=== PATIENT | male | born 1940 | race Caucasian/White ===

== ENCOUNTER 2021-04-13 08:51 | Outpatient (CLI) | payer MEDICARE, SELFPAY ==
--- NOTE | ~2021-04-13 | XR_ITS ---
XR cervical spine min 6V DATE: 04/13/2021 09:15 INDICATION: Neck pain. No injury. TECHNIQUE: AP, open-mouth, swimmer's, lateral and flexion and extension lateral views COMPARISON: None FINDINGS: There is minimal anterolisthesis at C4-5 which is stable in flexion, extension and neutral positions. C1 and C2 are normally aligned and the odontoid process is intact. No fracture or dislocation or lock ed facet or prevertebral soft tissue swelling. There is mild anterior spurring but relative preservation of interspaces at C4-5 and C5-6. There is degenerative change at the apophyseal joints throughout the cervical spine. IMPRESSION: Minimal stable anterolisthesis at C4-5 Mild anterior spurring at C4-5 and C5-6 Degenerative change at the apophyseal joints throughout the cervical spine Reviewed, dictated and finalized at location B.
== END 2021-04-13 08:52 | disposition home or self-care (01) ==
PROVIDERS: PCP Family Medicine; Visit Provider Physician Assistant
DX: M50.30 Other cervical disc degeneration, unspecified cervical region (principal)
CPT/HCPCS: 72052

== ENCOUNTER 2022-02-22 07:30 | Outpatient (RCR) | payer MEDICARE, OTHER, SELFPAY ==
--- NOTE | 2022-02-08 09:47 | OTOPEVAL ---
OCCUPATIONAL THERAPY INITIAL EVALUATION REPORT 02/08/22 Laci is an 81 year-old, right handed male who is referred to outpatient OT with dx of trigger finger. He reports deficits with being able to make a fist, particularly with the left middle finger. 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 We plan to follow up in 2 weeks for a re-assessment of his progress. Thank you for referring Laci Mas to [facility].? The patient is scheduled to be seen for therapy? 0-1x/week for 2 weeks. Please review, sign, date and return this plan of care QASIM. I agree with and certify that the following plan of care is medically necessary. Referring Physician Date Referring Provider: Devaughn Whyte MD Evaluation Information Problem Diagnosis Trigger finger, unspecified finger Onset a couple months Additional Evaluation Detail Left hand x-ray positive for IP joint degenerative changes. He received an injection to the left 3rd and 4th A1 eva on 01/05/22. Subjective Information Patient reports biggest Query Text:As Reported By Patient/ challenge with being able to Family fully close the left middle finger when trying to make a fist. He states the pain is localized to the PIP joint. He states this does not affect his ability to hold a golf club. Prior Level of Function Activity Level (Last 3 Months) Occupation Retired Hand Dominance Right Pain Assessment Timing of Pain Assessment Timing of Pain Assessment Assessment Pain Scale Pain Scale Used Numeric (1 - 10) Self Report Pain Assessment Left Finger, Middle Reported Pain Level 0 Lowest Pain Intensity 0 Greatest Pain Intensity 4 Other Pain Aggravating Factors Gripping and ROM Pain Score Pain Score 0: Self Report Upper Extremity Range of Motion Finger Range of Motion Left Middle Finger MCP Joint Flexion - Active 60 Middle Finger PIP Joint Flexion - Active 75 Middle Finger DIP Joint Flexion - Active 75 Finger Range of Motion Comments Index, ring, and pinky active flexion is WFL. Passive flexion of the middle finger is WFL. Reports discomfort in the PIP joint with passive flexion. Hand Sleeve Tailor/Pinch Strength Assessment Hand Left Sleeve Tailor Strength (lbs) 47 Right Sleeve Tailor Strength (lbs) 61 Upper Extremity Exercise Finger/Thumb Exercise Left Other Finger/Thumb Exercises
--- NOTE | 2022-02-22 08:05 | OTOPEVAL ---
OCCUPATIONAL THERAPY RE-EVALUATION REPORT AND DISCHARGE NOTE 02/22/22 Laci presents today after completing his HEP for 2 weeks independently. At this time, the ROM of the left middle finger has returned to normal limits. He is currently independent with all materials and ready for discharge. Thank you for referring Laci Mas to [facility]. Please review, sign, date and return this D/C Note QASIM. I agree with and certify that the following plan of care is medically necessary. Referring Physician Date Referring Provider: Devaughn Whyte MD *OT Outpatient Re-Evaluation Diagnosis Trigger finger Onset a couple months Additional Evaluation Detail Left hand x-ray positive for IP joint degenerative changes. He received an injection to the left 3rd and 4th A1 eva on 01/05/22. Subjective Information Patient reports biggest Query Text:As Reported By Patient/ challenge with being able to Family fully close the left middle finger when trying to make a fist. He states the pain is localized to the PIP joint. He has been working on ROM and gentle conservation agent strengthening HEP x2 weeks. Pain Assessment Timing of Pain Assessment Timing of Pain Assessment Re-assessment Pain Scale Pain Scale Used Numeric (1 - 10) Self Report Pain Assessment Left Finger, Middle Reported Pain Level 1 Lowest Pain Intensity 0 Greatest Pain Intensity 5 Other Pain Aggravating Factors ROM of the finger @ the PIP joint Pain Score Pain Score 1: Self Report Additional Pain Score Comments Patient's pain appears to be arthritic. Interventions Used Interventions Used By Clinicians Education,Exercise Upper Extremity Range of Motion Finger Range of Motion Left Middle Finger MCP Joint Flexion - Active 90 Middle Finger PIP Joint Flexion - Active 90 Middle Finger DIP Joint Flexion - Active 80 Finger Range of Motion Comments Middle finger ROM: MCP improved from 60* to 90* flexion PIP improved from 75* to 90* flexion DIP improved from 75* to 80* flexion This has allowed for return of a full fist with no gaps between the finger tip and the palm. Hand Event Host/Pinch Strength Assessment Hand Left Event Host Strength (lbs) 54 Hand Event Host/Pinch Strength Comments Event Host improved from 47 lbs. OT Clinical Summary Laci presents today after
== END 2022-02-22 16:11 | disposition home or self-care (01) ==
LOC: ANHOT 07:30
PROVIDERS: PCP Family Medicine; Visit Provider Orthopaedic Surgery
DX: M65.30 Trigger finger, unspecified finger (principal)
CPT/HCPCS: 97110; 97165

== ENCOUNTER 2022-06-10 12:32 | Outpatient (CLI) | payer MEDICARE, OTHER, SELFPAY ==
--- NOTE | ~2022-06-10 | XR_ITS ---
EXAMINATION: XR hand RT min 3V INDICATION: Right hand pain TECHNIQUE: Three views of the right hand are obtained on four radiographs COMPARISON: None FINDINGS: Bone alignment is normal. There is no fracture. 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 Calcified atheros clerosis is noted. IMPRESSION: 1. No acute osseous abnormality. Reviewed, dictated and finalized at location B.
== END 2022-06-10 12:33 | disposition home or self-care (01) ==
PROVIDERS: PCP Family Medicine; Visit Provider Physician Assistant
DX: S69.90XA Unspecified injury of unspecified wrist, hand and finger(s), initial encounter (principal); X58.XXXA Exposure to other specified factors, initial encounter
CPT/HCPCS: 73130

== ENCOUNTER 2022-06-24 09:57 | Outpatient (CLI) | payer MEDICARE, OTHER, SELFPAY ==
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
== END 2022-06-24 09:58 | disposition home or self-care (01) ==
PROVIDERS: PCP Physician Assistant; Visit Provider Physician Assistant
DX: M54.2 Cervicalgia (principal); R40.20 Unspecified coma; I65.23 Occlusion and stenosis of bilateral carotid arteries
CPT/HCPCS: 93880

== ENCOUNTER 2023-07-19 18:47 | Emergency (ER) | payer MEDICARE, OTHER, SELFPAY ==
--- NOTE | ~2023-07-19 | XR_ITS ---
EXAMINATION: XR ribs RT 2V DATE: 07/19/2023 19:28 INDICATION: Right rib pain. Fall. TECHNIQUE: 2 views of the right ribs on 3 radiographs were obtained. COMPARISON: None. FINDINGS: There is no right-sided pneumonia, pleural effusion, or pneumothorax. The heart size is nor mal. There are changes of aortic valve replacement. There is a fracture of right 10th rib. IMPRESSION: 1. Fracture of right 10th rib. Reviewed, dictated and finalized at location E.
[2023-07-19 19:16] VITALS: BP 110/63; PULSE 86; RESP 12; TEMP 36.5; O2SAT 97
[2023-07-19 20:28] VITALS: BP 121/80; PULSE 80; RESP 15; TEMP 36.5; O2SAT 99
--- NOTE | 2023-07-19 20:38 | ED.FALL ---
HPI - Fall General Chief Complaint: Fall Stated Complaint: fall/rib injury Time Seen by Provider: 07/19/23 20:28 Source: patient and family Limitations: no limitations History of Present Illness HPI Narrative: Patient fell, striking R chest along dresser. States he tripped and fell. Denies syncope or loss of consciousness. Did not hit head. This occurred at approximately 10 or 10:30 the previous night. He trialed hydrocodone 5mg at 4pm today given pain persisted. 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 Left trigger finger left third and fourth digits Mild cognitive impairment PAD (peripheral artery disease) Severe aortic stenosis 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 Status post insertion of drug-eluting stent into left anterior descending (LAD) artery Stenosis of left subclavian artery Stenosis of subclavian artery s/p stent Surgical History Surgical History H/O lower limb amputation History of left below knee amputation History of placement of stent in LAD coronary artery History of transcatheter aortic valve replacement (TAVR) Family History Family History Sibling Family history of malignant neoplasm Family history of lung cancer Other Diabetes mellitus Heart disease Hypertension Lung cancer Social History Social History Social History: Smoking packs per day: 3 Smoking cigarettes per day: 60.0 Years smoked: 40 Smoking pack-years: 120.00 Smoking status: Former smoker Tobacco type: cigarettes Second hand tobacco smoke exposure: Yes Smoking end date: 10/02/96 Alcohol intake: never Substance use: never Substance use type: does not use Living arrangements: with family Occupation/Education: retired Gender identity (if verbalized by the patient): Male Sexual Orientation (if Verbalized by the Patient): Straight or Heterosexual Exam Const: General: healthy appearing and no acute distress Nutritional Appearance: well nourished Limitations: no limitations HENMT: Head: normal to inspection, no contusions, no hematomas and no lacerations Eyes: Conjunctivae: conjunctivae normal Neck: Neck: normal visual inspection Chest: Chest palpation & inspection: tenderness (right lower chest) rib Resp: Effort & Inspection: normal respiratory effort, not labored, no retractions and not tachypneic Cardio: Rate: regular rate, not bradycardic and not tachycardic Neuro: General: no focal motor deficits Speech: normal speech Extrem: Other: artificial left leg. Psych: Mental Status: mental status grossly normal Affect: normal affect, No Sad affect present and No Anxious affect present Attitude: cooperative Course Vital Signs Vital signs: Vital Signs Temperature 97.7 F 07/19/23 19:16 Pulse Rate 86 07/19/23 19:16 Respiratory Rate 12 07/19/23 19:16 Blood Pressure 110/63 07/19/23 19:16 Pulse Oximetry 97 07/19/23 19:16 Oxygen Delivery Room Air 07/19/23 19:16 Temperature 97.7 F 07/19/23 20:28 Pulse Rate 80 07/19/23 20:28 Respiratory Rate 15 07/19/23 20:28 Blood Pressure 121/80 07/19/23 20:28 Pulse Oximetry 99 07/19/23 20:28 Oxygen Delivery Room Air 07/19/23 20:28 MDM - Fall MDM Narrative Medical decision making narrative: Reina
[2023-07-19] MEDS: HYDROcodone/acetaminophen (*CRX) 5-325 MG TABLET 1 TAB PO (21:08)
[2023-07-19] MEDS: LIDOCAINE 5% PATCH 1 PATCH TRANSDERM (21:09)
== END 2023-07-19 21:22 | disposition home or self-care (01) ==
LOC: ANHED 20:54
PROVIDERS: Emergency Provider Student in an Organized Health Care Education/Training Program; PCP Family Medicine
DX: S22.31XA Fracture of one rib, right side, initial encounter for closed fracture (principal); E11.22 Type 2 diabetes mellitus with diabetic chronic kidney disease; I12.9 Hypertensive chronic kidney disease with stage 1 through stage 4 chronic kidney disease, or unspecified chronic kidney disease; N18.30 Chronic kidney disease, stage 3 unspecified; Z87.891 Personal history of nicotine dependence; W01.0XXA Fall on same level from slipping, tripping and stumbling without subsequent striking against object, initial encounter
CPT/HCPCS: 71100; 99283; A9270

== ENCOUNTER 2024-02-01 14:30 | Outpatient (CLI) | payer MEDICARE, OTHER, SELFPAY ==
--- NOTE | ~2024-02-01 | XR_ITS ---
EXAMINATION: XR lumbar spine 2-3V DATE: 02/01/2024 15:13 INDICATION: Chronic low back pain. TECHNIQUE: 3 views of lumbar spine were obtained. COMPARISON: Lumbar spine radiographs 01/24/2019 FINDINGS: Bone alignment is normal. Vertebral body heights are normal. There is mildly decreased disc height at L2-L3. There are endplate osteophytes at all levels. There is multilevel severe facet join t osteoarthritis. There are stents in the common iliac arteries. IMPRESSION: 1. Mild lumbar spondylosis. Reviewed, dictated and finalized at location E. IMPRESSION: 1. Mild lumbar spondylosis.
== END 2024-02-01 14:31 | disposition home or self-care (01) ==
LOC: ANHIMG 14:34
PROVIDERS: PCP Family Medicine; Visit Provider Family Medicine
DX: M47.896 Other spondylosis, lumbar region (principal)
CPT/HCPCS: 72100

== ENCOUNTER 2024-12-27 00:07 | Emergency (ER) | payer MEDICARE, OTHER, SELFPAY ==
[2024-12-27 00:06] VITALS: BP 140/64; PULSE 66; RESP 16; TEMP 36.3; O2SAT 100
--- OUTSIDE RECORDS SUMMARY | 2024-12-27 01:10 | XMS_ITS | Encounter Summary ---
Author Organization [facility] Address [address] [place] [address] Care Team Providers Care Promotions Executive Name Role Phone Valeria Krishnamurthy RN Unavailable [phone] Ross Bailey MD Primary Care Provider [phone] Encounter Details Date Type Department Care Team (Late st Contact Info) Description 03/31/2021 Lab Requisition [facility] Lab [address] [place] [id number] Richi Cardoza MD [address] [place] [address] Social History Tobacco Use Types Packs/Day Years Used Date Smoking Tobacco: Former Cigarettes 2 40 0 10/02/1954 - 10/02/1994 Smokeless Tobacco: Never Alcohol Use Standard Drinks/Week Comments No 0 (1 standard drink = 0.6 oz pur e alcohol) Sex and Gender Information Value Date Recorded Sex Assigned at Not on file Gender Identity Not on file Sexual Orientation Not on file documented as of this encounter Functional Status Functional Status Response Date of Assess ment Is person deaf or have serious hearing difficult y? No 10/25/2016 Is person blind or have serious difficulty seein g? No 10/25/2016 Does person have serious dif ficulty walking/climbing stairs? No 10/25/2016 Does person have difficulty dressing/bathing? No 10/25/2016 Does person have difficulty doing errands alone? No 10/25/2016 Cognitive Status Response Date of Assessm ent Does person have difficulty concentrating/remembering/making decisions? No 10/25/2016 documented as of this encounter Plan of Treatment Upcoming Encounters Date Type Department Care Team (Late st Contact Info) Description 03/19/2025 9:30 AM CDT Appointment [facility] Services [address], [address] [place] [address] 03/19/2025 10:10 AM CDT Office Visit [facility] - Surgery [address], [address] [place] [id number] [place] [address] [address] [place] [address] documented as of this encounter Procedures Procedure Name Priority Date/Time Associated Diagnosis Comments DERMATOPATHOLOGY Routine 03/30/2021 12:0 0 AM CDT documented in this encounter Results * DERMATOPATHOLOGY (03/30/2021 12:00 AM CDT) Case Report Dermatopathology Report Case: [id number] Authorizing Provider: Richi Cardoza MD Collected: 03/30/2021 12:00 AM Ordering Location: [facility] Received: 03/31/2021 05:53 AM Pathologist: Ruben Holland MD Specimen: Skin, left lower cheek 2:41 PM CDT DERMATOPATHOLOGY LABORATORY Final Diagnosis Specimen A. 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 Path # [id number]. 2:41 PM CDT DERMATOPATHOLOGY LABORATORY Gross Description Specimen A: Received is one formalin filled container labeled with the patient's name and designated left lower cheek. The specimen consists of a shave biopsy measuring [id number]. Jar 0. 2:41 PM CDT DERMATOPATHOLOGY LABORATORY Microscopic Description Specimen A. SKIN, left lower cheek: The epidermis shows parakeratosis, full thickness disorderly maturation of keratinocytes, mitoses at different levels, and dyskeratotic cells. 1 2:41 PM CDT DERMATOPATHOLOGY LABORATORY Disclaimer An external and internal positive and negative controls are appropriate for the histochemical, immunohistochemical and immunofluorescence stain(s) in this case (if any), except where stated explicitly. The performance characteristics of the stain(s) cited in this report were developed and its performance characteristic determined by the Dermatopathology Laboratory at [facility], directed by Dr. Diogo Holland. These tests need not be, and therefore are not, approved by the [place] Food and Drug Administration. The tests are used for clinical purposes. Billing Codes Specimen Charges Stain Charges 29611 1 1 2:41 PM CDT DERMATOPATHOLOGY LABORATORY Embedded Images 1 2:41 PM CDT DERMATOPATHOLOGY LABORATORY Pathology/Cytolog y TISSUE SPECIMEN FROM SKIN / Unknown 03/30/2021 03/31/2021 5:53 AM CDT Richi Cardoza MD LAB - PATHOLOGY/CYTO LOGY ORDERABLES DERMATOPATHOLOGY LABORATORY [facility] - Department of Dermatology [facility] Medicine [address] [place] [address], [address] [phone] documented in this encounter Visit Diagnoses Not on filedocumented in this encounter Care Teams Promotions Executive Relationship Specialty Start Date End Date Ross Bailey MD [address] [place] [address] PCP - General Family Medicine 06/08/21 Valeria Krishnamurthy, RN [employer] 11/03/13 documented as of this encounter
--- OUTSIDE RECORDS SUMMARY | 2024-12-27 01:10 | XMS_ITS | Clinical Summary ---
Author Organization [facility] Address [address] [place] [address] Care Team Providers Care Inspector Outside Production Name Role Phone Valeria Krishnamurthy RN Unavailable [phone] Ross Bailey MD Primary Care Provider [phone] Source Comments [facility],non-owned Affiliates and Associated Physician Practices is amultiple site organization consisting of ambulatory clinics and hospital sitesin [place], [place], [place] and [place]. This disclosure is being madepursuant to the Care Everywhere program and may not contain all information available regarding this patient. Last updated 18.[facility] Allergies Active Allergy Reactions Criticality Noted Date Comments Lisinopril 01/22/2012 Medications * Be aware that medications may not be up to date on this document. Alwaysverify current medications with the patient. Medication Sig Dispensed Refills Start Date End Date Status ezetimibe (ZETIA) 10 MG tablet Take 1 (one) tablet by mouth once daily Active sitagliptin (JANUVIA) 100 MG tablet Take 1 (one) tablet by mouth once daily Active metFORMIN (GLUCOPHAGE) 500 MG tablet Take 1 (one) tablet by mouth once daily Active pravastatin (PRAVACHOL) 40 MG tabletIndications:A therosclerotic Disease Take 1 (one) tablet by mouth at bedtime Reasons: Disease involving Lipid Deposits in the Arteries Active fenofibrate (LOFIBRA) 54 MG tabletIndications:T ype IV Hyperlipidemia Take 1 (one) tablet by mouth 2 times daily, before breakfast and supper Take with largest meal of the day. Reasons: Type IV Hyperlipidemia Active amLODIPine (NORVASC) 5 MG tablet 09/01/2016 Active Vitamin D3 (CHOLECALCIFEROL) 2000 UNITS capsule Take 2 (two) capsules by mouth once daily Active traZODone (Desyrel) 50 MG tablet TAKE 1 TABLET BY MOUTH EVERY DAY AT BEDTIME NEEDED FOR INSOMNIA 06/07/2022 Active Aspirin 81 MG CAPS Active TERBINAFINE HCL PO Active memantine (Namenda) 5 MG tablet TAKE 1 TABLET BY MOUTH EVERY DAY FOR 7 DAYS THEN 1 TAB TWICE DAILY THEREAFTER 03/01/2023 Active terbinafine (LamISIL) 250 MG tablet Take 1 (one) tablet by mouth once daily 01/27/2023 Active fenofibrate (Lofibra) 160 MG tablet 04/03/2023 Active rivastigmine (Exelon) 1.5 MG capsule Take 1 (one) capsule by mouth 02/29/2024 Active Eliquis 5 MG tablet TAKE 1 TABLET BY MOUTH TWICE A DAY 60 tablet 5 09/06/2024 Active hydrOXYzine HCl (Atarax) 10 MG tablet TAKE 1 TABLET BY MOUTH EVERY DAY AT BEDTIME NEEDED FOR INSOMNIA 07/23/2024 Active HYDROcodone-acetami nophen ([place]) 5-325 MG tabletIndications:P eripheral vascular disease Take 1 (one) tablet by mouth every 8 hours as needed for Pain 90 tablet 09/18/2024 Active Additional Information Patient not taking.Reported on 11/28/2024 pentoxifylline CR (TRENtal) 400 MG tabletIndications:P eripheral vascular disease TAKE 1 TABLET BY MOUTH THREE TIMES A DAY 270 tablet 1 09/30/2024 Active gabapentin (Neurontin) 100 MG capsule gabapentin 100 mg capsule 11/18/2024 Active Active Problems Problem Noted Date Diagnosed Date Leg skin lesion, right 03/12/2024 Cold foot with peripheral vascular disease 09/03 Pain of right lower extremity 09/03/2022 PVD (peripheral vascular disease) 08/11/2016 Cerebral infarction 07/30/2012 Overview (08/09/2015): Encounters Date Type Department Care Team Description 11/28/2024 9:00 AM LENO SEWER Office Visit [facility] - Surgery [address] [place] [address], [address] [address] Lavon Jerez MD PVD (peripheral vascular disease) (Primary Dx) 11/28/2024 8:00 AM LENO SEWER - 11/28/2024 11:59 PM [facility] SEWER Hospital Encounter [facility] Health Vascular Services [address] [place] [address], [address] [place] [address] Lavon Jerez MD Vascular Surgery Discharge Disposition: Home or Self Care 11/28/2024 Travel 09/30/2024 Refill [facility] Medical [facility] - Surgery [address] [place] [address], [address] [place] [address] Bari Bermudez MD Refill Request from Last 3 Months Family History Medical History Relation Name Comments Lung Cancer Brother 3 Stroke Brother 4 Relation Name Status Comments Brother 1 Brother 2 Alive Brother 3 Brother 4 Father Mother Social History Tobacco Use Types Packs/Day Years Used Date Smoking Tobacco: Former Cigarettes 2 40 0 10/02/1954 - 10/02/1994 Smokeless Tobacco: Never Tobacco Cessation:Counseling Given: No Alcohol Use Standard Drinks/Week Comments No 0 (1 standard drink = 0.6 oz pur e alcohol) Sex and Gender Information Value Date Recorded Sex Assigned at Not on file Gender Identity Not on file Sexual Orientation Not on file Last Filed Vital Signs Vital Sign Reading Time Taken Comments Blood Pressure 114/70 09/04/2022 10:49 AM LENO SEWER Pulse 69 09/04/2022 10:49 AM LENO SEWER Temperature 36.7 C (98 F) 09/04/2022 10:49 AM LENO SEWER Respiratory Rate 16 09/04/2022 10:49 AM LENO SEWER Oxygen Saturation 96% 09/04/2022 10:49 AM LENO SEWER Inhaled Oxygen Concentration - - Weight 70.3 kg (155 lb) 11/28/2024 9:32 AM LENO SEWER Height 170.2 cm (5' 7 ) 11/28/2024 9:32 AM LENO SEWER Body Mass Index 24.28 11/28/2024 9:32 AM LENO SEWER Plan of Treatment Upcoming Encounters Date Type Department Care Team (Late st Contact Info) Description 03/19/2025 9:30 AM CDT Appointment [facility] Health Vascular Services [address] [place] [address], [address] [place] [address] 03/19/2025 10:10 AM CDT Office Visit [facility] Medical [facility] - Surgery [address] [place] [address], [facility] [address] [place] [address] [place] [address] [facility] [address] [place] [address] Health Maintenance Due Date Last Done Comments MEDICARE AWV 12 MONTHS 1940 DTAP/TDAP/TD VACCINES (1 - Tdap) 1958 PNEUMOCOCCAL VACCINE 50+ (1 of 1 - PCV) 1989 ZOSTER VACCINE (1 of 2) 1989 Respiratory Syncytial Virus (RSV) Vaccine Pt: or over 60 yrs (1 - 1-dose 75+ series) 2014 COVID-19 VACCINE (2023-2 5 season) 2024 08/10/2021, 12/15/2020, 11/17/2020 INFLUENZA VACCINE (#1) 2024 07/02/2022 DEPRESSION SCREENING 10/02/2024 HEPATITIS B VACCINE Aged Out No longe r eligible based on patient's age to complete this topic HIB VACCINE Aged Out No longer eligi ble based on patient's age to complete this topic HPV VACCINE Aged Out No longer eligi ble based on patient's age to complete this topic MENINGOCOCCAL (Group B) VACCINE SHARED DECISION-MAKING Aged Out No longer eligible based on patient's age to complete this topic MENINGOCOCCAL GROUPS A/C/Y/W VACCINE Aged Out No longer eligible b ased on patient's age to complete this topic Medical Devices Implanted Type Area Septic Tank Service Technician Device Identifier Shelf Expiration Date Model / Serial / Lot Elliot Carboflo 8 X 40 - [id number] Implanted:Qty: 1 on 01/05/2015 by Bari Bermudez MD at [facility] Right: Groin Impra [id number] / [id number] / Elliot Propaten 6 X 50 Implanted:Qty: 1 on 01/05/2015 by Bari Bermudez MD at [facility] Right: [employer] [id number] / / [id number] Procedures Procedure Name Priority Date/Time Associated Diagnosis Comments VAS LEFT VENOUS DUPLEX LE Routine 11/28/2024 10:55 AM LENO SEWER Pain of left lower extremity from Last 3 Months Results * VAS Left Venous Duplex Le (11/28/2024 10:55 AM LENO SEWER) Anatomical Region Laterality Modality Lower Extremity, Upper Extremity Ultrasound 11/28/2024 10:4 0 AM LENO SEWER Narrative Procedure Note Lavon Jerez MD - 11/28/2024 [facility] Vascular [facility] [address] [facility], [address] [place] [address] Upper Extremity Arterial Ultrasound Report Pat.Name: GWEN LEE Pat.ID: [id number] .Date: 11/28/2024 Exam Time: 10:40:00 AM Study Type:UE Arterial Age: 2 1940,84Y Sex: MALE Sonogrphr: Mehdi Yoon RVT Pat. Stat.:Outpatient CPT - 4: [id number] Reason for Study: PVD Procedures: Upper Extremity Arterial Duplex - Left Race: [facility] Visit ID: [id number] ++++++++++++++++++++++++++++++++++++ SUMMARY: ++++++++++++++++++++++++++++++++++++ Patent left axillary to femoral bypass graft ++++++++++++++++++++++++++++++++++++ FINDINGS: ++++++++++++++++++++++++++++++++++++ Procedure: B-mode imaging, color flow Doppler and spectral analysis were used to examine the arteries of the left upper extremity. Study Quality: This study is of adequate technical quality. Graft: The left axillary to profunda graft was patent. Signed 11/28/2024 11:29 AM Lavon Jerez MD Lavon Jerez MD VASCULAR LAB ORDERAB LES from Last 3 Months Advance Directives Documents on File Type Date Recorded Patient Supply Controller Expl anation Adv Directive/Living Will/POA 01/01/2012 11:43 AM * Full Code (Latest Code Status on File) Date Activated Date Inactivated Comments 09/03/2022 4:46 PM 09/04/2022 6:53 PM * Full Code Date Activated Date Inactivated Comments 09/03/2022 4:45 PM 09/03/2022 4:46 PM * Full Code Date Activated Date Inactivated Comments 10/19/2016 3:03 PM 10/25/2016 1:00 PM * Full Code Date Activated Date Inactivated Comments 01/05/2015 8:04 PM 01/11/2015 11:27 AM * Full Code Date Activated Date Inactivated Comments 09/09/2014 3:14 PM 09/13/2014 1:53 PM Care Teams Inspector Outside Production Relationship Specialty Start Date End Date Ross Bailey MD [address] [place] [address] PCP - General Family Medicine 06/08/21 Valeria Krishnamurthy, RN Sales Trader 11/03/13
--- OUTSIDE RECORDS SUMMARY | 2024-12-27 01:10 | XMS_ITS | Clinical Summary ---
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 PROFESSOR Gender Identity Not on file Sexual Orientation Not on file Plan of Treatment Health Maintenance Due Date Last Done Comments DTaP, Tdap and Td Vaccines ( 1 - Tdap) 1958 Zoster Vaccines (1 of 2) 1989 Annual Medicare Wellness Visit 2004 Pneumococcal Vaccine: 65+ Years (1 of 1 - PCV) 2004 RSV Immunization or 60+ Years (1 - 1-dose 75+ series) 2014 COVID-19 Vaccine ( - 2023-2 5 season) 2024 08/10/2021, 12/15/2020, 11/17/2020 Influenza Adult (#1) 2024 Meningococcal B Vaccine Aged Out No l onger eligible based on patient's age to complete this topic Meningococcal Vaccine Aged Out No belgica taurus eligible based on patient's age to complete this topic RSV Immunizations Under 20 Months Aged Out No longer eligible b ased on patient's age to complete this topic Insurance MEDICARE [employer] Care Teams Travel Information Center Supervisor Relationship Specialty Start Date End Date Ross Bailey MD [address] [place] [address] PCP - General FAMILY PRACTICE 09/08/21
--- OUTSIDE RECORDS SUMMARY | 2024-12-27 01:10 | XMS_ITS | Encounter Summary ---
Author Organization [facility] Address [address] [place] [address] Care Team Providers Care Slate Picker Name Role Phone Valeria Krishnamurthy RN Unavailable [phone] Ross Bailey MD Primary Care Provider [phone] Encounter Details Date Type Department Care Team (Late st Contact Info) Description 06/08/2023 Lab Requisition [facility] - DermPath Lab [address] [place] [id number] Rcihi Cardoza MD [address] [place] [address] Social History Tobacco Use Types Packs/Day Years [...] Info) Description 03/19/2025 9:30 AM CDT Appointment [facility] Vascular Services [address], [address] [place] [address] 03/19/2025 10:10 AM CDT Office Visit [facility] - Surgery [address], [address] [place] [address] [place] [address] [facility] [address] [place] [id number] documented as of this encounter Procedures Procedure Name Priority Date/Time Associated Diagnosis Comments DERMATOPATHOLOGY Routine 06/07/2023 3:33 AM CDT documented in this encounter Results * DERMATOPATHOLOGY (06/07/2023 3:33 AM CDT) Case Report Dermatopathology Report Case: [id number] Authorizing Provider: Richi Cardoza MD Collected: 06/07/2023 03:33 AM Ordering Location: [facility] DermPath Lab Received: 06/08/2023 04:59 PM Pathologist: Ling Pinon MD Specimen: Skin, left lat zygoma 11:15 AM CDT DERMATOPATHOLOGY LABORATORY Final Diagnosis Specimen A. 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 The specimen consists of a non-oriented ellipse of skin measuring 06d06n4 mm. The epidermal surface is unremarkable. The margin is inked green. The 12 o'clock and 6 o'clock tips are submitted in cassette 1. The remainder of the ellipse is serially sectioned and submitted in cassette 2-3. Jar 0. 3 11:15 AM T DERMATOPATHOLOGY LABORATORY Microscopic Description Specimen A. SKIN, left lat zygoma: There are fibroblasts and collagen bundles oriented parallel to the skin surface. There are elongated blood vessels, some of which are oriented perpendicular to the skin surface. No residual squamous cell carcinoma is identified. There is hyperkeratosis alternating with parakeratosis. There is epidermal hyperplasia with disorderly maturation of keratinocytes with nuclear pleomorphism confined to the lower half of the epidermis. Mib-1 stain highlights proliferating keratinocytes within the lower half of the epidermis. This lesion is present at both lateral margins of the specimen in blocks 2 and 3. 3 11:15 AM T DERMATOPATHOLOGY LABORATORY Disclaimer An external and internal positive and negative controls are appropriate for the histochemical, immunohistochemical and immunofluorescence stain(s) in this case (if any), except where stated explicitly. The performance characteristics of the stain(s) cited in this report were developed and its performance characteristic determined by the Dermatopathology Laboratory at [facility], directed by Dr. Diogo Holland. These tests need not be, and therefore are not, approved by the [place] Food and Drug Administration. The tests are used for clinical purposes. Billing Codes Specimen Charges Stain Charges 40038 1 11905 1 3 11:15 AM CDT DERMATOPATHOLOGY LABORATORY Embedded Images 3 11:15 AM CDT DERMATOPATHOLOGY LABORATORY Pathology/Cytolo gy TISSUE SPECIMEN FROM SKIN / Unknown 06/07/2023 3:33 AM CDT 06/08/2023 4:59 PM CDT Richi Cardoza MD LAB - PATHOLOGY/CYTO LOGY ORDERABLES DERMATOPATHOLOGY LABORATORY [facility] - Department of Dermatology [facility] Medicine [address] [place] [address], [address] [phone] documented in this encounter Visit Diagnoses Not on filedocumented in this encounter Care Teams Slate Picker Relationship Specialty Start Date End Date Ross Bailey MD [address] [place] [address] PCP - General Family Medicine 06/08/21 Valeria Krishnamurthy, RN Wagon Driver Salesperson 11/03/13 documented as of this encounter
--- OUTSIDE RECORDS SUMMARY | 2024-12-27 01:10 | XMS_ITS | Encounter Summary ---
Author Organization [facility] Health Address [address] [place] [address] Care Team Providers Care Transportation Job Titles Name Role Phone Gonzalo Conway MD Primary Care Provider Valeria Krishnamurthy RN Unavailable [phone] Ross Bailey MD Primary Care Provider [phone] Encounter Details Date Type Department Care Team (Late st Contact Info) Description 11/05/2013 [facility] Outpatient Visit [facility] DEPT Bari Bermudez MD [address] [place] [address] [address] [place] [address] Social History Tobacco Use Types Packs/Day Years Used Date Smoking Tobacco: Former Cigarettes Q uit: 10/02/1994 Smokeless Tobacco: Never Comments:1994 Alcohol Use Standard Drinks/Week Comments No 0 (1 standard drink = 0.6 oz pur e alcohol) Sex and Gender Information Value Date Recorded Sex Assigned at Not on file Gender Identity Not on file Sexual Orientation Not on file documented as of this encounter Plan of Treatment Upcoming Encounters Date Type Department Care Team (Late st Contact Info) Description 03/19/2025 9:30 AM CDT Appointment [facility] Health Vascular Services [address] [place] [address], [facility] [address] [place] [address] 03/19/2025 10:10 AM CDT Office Visit [facility] Medical Group - Surgery [address] [place] [address], [address] [place] [address] Bari Bermudez MD [address] [place] [address] [address] [place] [address] documented as of this encounter Visit Diagnoses Not on filedocumented in this encounter Care Teams Transportation Job Titles Relationship Specialty Start Date End Date Gonzalo Conway MD [address] [facility] [place] [address] PCP - General 02/25/10 11/12/18 Ross Bailey MD [address] [place] [address] PCP - General Family Medicine 06/08/21 Valeria Krishnamurthy, RN Assisted Living Housekeeper 11/03/13 documented as of this encounter
--- OUTSIDE RECORDS SUMMARY | 2024-12-27 01:10 | XMS_ITS | Encounter Summary ---
Author Organization [facility] Health Address [address] [place] [address] Care Team Providers Care Technical Publications Writer Name Role Phone Gonzalo Conway MD Primary Care Provider Valeria Krishnamurthy RN Unavailable [phone] Ross Bailey MD Primary Care Provider [phone] Encounter Details Date Type Department Care Team (Late st Contact Info) Description 02/12/2016 [facility] Outpatient Visit [facility] [address] [place] [address] [place] [address] [address] Social History Tobacco Use Types Packs/Day [...] or have serious hearing difficult y? No 01/05/2015 Is person blind or have serious difficulty seein g? No 01/05/2015 Does person have serious dif ficulty walking/climbing stairs? No 01/05/2015 Does person have difficulty dressing/bathing? No 01/05/2015 Does person have difficulty doing errands alone? No 01/05/2015 Cognitive Status Response Date of Assessm ent Does person have difficulty concentrating/remembering/making decisions? No 01/05/2015 documented as of this encounter Plan of Treatment Upcoming Encounters Date Type Department Care Team (Late st Contact Info) Description 03/19/2025 9:30 AM CDT Appointment [facility] Vascular Services [address] [place] [address], [address] [place] [address] 03/19/2025 10:10 AM CDT Office Visit [facility] Medical Group - Surgery [address], [address] [place] [address] [place] [address] [facility] [address] [place] [address] documented as of this encounter Visit Diagnoses Not on filedocumented in this encounter Care Teams Technical Publications Writer Relationship Specialty Start Date End Date Gonzalo Conway MD [address] [place] [phone] PCP - General 02/25/10 11/12/18 Ross Bailey MD [address] [place] [address] PCP - General Family Medicine 06/08/21 Valeria Krishnamurthy, RN Career Law Clerk 11/03/13 documented as of this encounter
--- OUTSIDE RECORDS SUMMARY | 2024-12-27 01:10 | XMS_ITS | Encounter Summary ---
Author Organization [facility] Health Address [address] [place] [address] Care Team Providers Care Phosphatic Fertilizer Supervisor Name Role Phone Gonzalo Conway MD Primary Care Provider [phone] Valeria Krishnamurthy RN Unavailable [phone] Ross Bailey MD Primary Care Provider [phone] Encounter Details Date Type Department Care Team (Late st Contact Info) Description 03/02/2016 [facility] Outpatient Visit [facility] [address] [place] [address] [place] [address] [address] Social History Tobacco Use Types [...] Info) Description 03/19/2025 9:30 AM CDT Appointment [facility] Vascular Services [address] [place] [address], [address] [place] [address] 03/19/2025 10:10 AM CDT Office Visit [facility] Medical Group - Surgery [address] [facility], [address] [place] [address] [place] [address] [facility] [address] [place] [address] documented as of this encounter Visit Diagnoses Not on filedocumented in this encounter Care Teams Phosphatic Fertilizer Supervisor Relationship Specialty Start Date End Date Gonzalo Conway MD [address] [place] [phone] PCP - General 02/25/10 11/12/18 Ross Bailey MD [address] [place] [address] PCP - General Family Medicine 06/08/21 Valeria Krishnamurthy, RN Jack Frame Tender 11/03/13 documented as of this encounter
--- OUTSIDE RECORDS SUMMARY | 2024-12-27 01:10 | XMS_ITS | Encounter Summary ---
Author Organization [facility] Address [address] [place] [address] Care Team Providers Care Sports Physical Therapist Name Role Phone Valeria Krishnamurthy RN Unavailable [phone] Ross Bailey MD Primary Care Provider [phone] Encounter Details Date Type Department Care Team (Late st Contact Info) Description 05/23/2023 Lab Requisition [facility] Physician Group - DermPath Lab [address] [place] [id number] Richi Cardoza MD [address] [facility] [place] [address] Social History Tobacco Use Types Packs/Day Years [...] Info) Description 03/19/2025 9:[address] [facility] Vascular Services [address] [facility], [address] [place] [address] 03/19/2025 10:10 AM CDT Office Visit [facility] Medical Group - Surgery [address] [facility], [address] [place] [address] [place] [id number] [place] [address] [address] [place] [phone] documented as of this encounter Procedures Procedure Name Priority Date/Time Associated Diagnosis Comments DERMATOPATHOLOGY Routine 05/22/2023 12:0 0 AM CDT documented in this encounter Results * DERMATOPATHOLOGY (05/22/2023 12:00 AM CDT) Case Report Dermatopathology Report Case: [id number] Authorizing Provider: Richi Cardoza MD Collected: 05/22/2023 12:00 AM Ordering Location: [facility] DermPath Lab Received: 05/23/2023 03:20 PM Pathologist: Ruben Holland MD Specimen: Skin, left lateral zygoma 3:39 PM CDT DERMATOPATHOLOGY LABORATORY Final Diagnosis Specimen A. SKIN, left lateral zygoma: SQUAMOUS CELL CARCINOMA IN SITU, PRESENT AT THE BASE OF THE SPECIMEN (D04.39) (see microscopic description and comment) 3:39 PM CDT DERMATOPATHOLOGY LABORATORY Clinical History SCCA vs AK: Path# [id number] 3:39 PM CDT DERMATOPATHOLOGY LABORATORY Gross Description Specimen A: Received is one formalin filled container labeled with the patient's name and designated left lateral zygoma. The specimen consists of a shave biopsy measuring 7x5x1 mm. Jar 0. 3:39 PM CDT DERMATOPATHOLOGY LABORATORY Microscopic Description Specimen A. SKIN, left lateral zygoma: The epidermis shows parakeratosis, full thickness disorderly maturation of keratinocytes, mitoses at different levels, and dyskeratotic cells. The lesion extends to the base of the biopsy. COMMENT: An invasive squamous cell carcinoma cannot be ruled out. 3 3:39 PM CDT DERMATOPATHOLOGY LABORATORY Disclaimer An external and internal positive and negative controls are appropriate for the histochemical, immunohistochemical and immunofluorescence stain(s) in this case (if any), except where stated explicitly. The performance characteristics of the stain(s) cited in this report were developed and its performance characteristic determined by the Dermatopathology Laboratory at [facility], directed by Dr. Diogo Holland. These tests need not be, and therefore are not, approved by the [place] Food and Drug Administration. The tests are used for clinical purposes. Billing Codes Specimen Charges Stain Charges 59224 1 3 3:39 PM CDT DERMATOPATHOLOGY LABORATORY Embedded Images 3 3:39 PM CDT DERMATOPATHOLOGY LABORATORY Pathology/Cytolog y TISSUE SPECIMEN FROM SKIN / Unknown 05/22/2023 05/23/2023 3:20 PM CDT Richi Cardoza MD LAB - PATHOLOGY/CYTO LOGY ORDERABLES DERMATOPATHOLOGY LABORATORY [facility] - Department of Dermatology [address], [address] [phone] documented in this encounter Visit Diagnoses Not on filedocumented in this encounter Care Teams Sports Physical Therapist Relationship Specialty Start Date End Date Ross Bailey MD [address] [place] [address] PCP - General Family Medicine 06/08/21 Valeria Krishnamurthy, RN Publications Production Supervisor 11/03/13 documented as of this encounter
--- OUTSIDE RECORDS SUMMARY | 2024-12-27 01:10 | XMS_ITS | Encounter Summary ---
Author Organization [facility] Address [address] [facility] [place] [address] Care Team Providers Care Emergency Management Program Specialist Name Role Phone Valeria Krishnamurthy RN Unavailable [phone] Ross Bailey MD Primary Care Provider Encounter Details Date Type Department Care Team (Late st Contact Info) Description 05/27/2021 Lab Requisition [facility] Care DermPath Lab [address] [facility] [place] [phone] Richi Cardoza MD [address] COUNTS INCLUDE [address] [facility] [address] Social History Tobacco Use Types Packs/Day [...] Info) Description 03/19/2025 9:30 AM CDT Appointment [facility] Vascular Services [address] [facility], [address] [place] [address] 03/19/2025 10:10 AM CDT Office Visit [facility] Medical Group - Surgery [address] [facility], [address] [place] [address] [place] [address] [facility] [address] [place] [address] documented as of this encounter Procedures Procedure Name Priority Date/Time Associated Diagnosis Comments DERMATOPATHOLOGY Routine 05/26/2021 12:0 0 AM CDT documented in this encounter Results * DERMATOPATHOLOGY (05/26/2021 12:00 AM CDT) Case Report Dermatopathology Report Case: [id number] Authorizing Provider: Richi Cardoza MD Collected: 05/26/2021 12:00 AM Ordering Location: [facility] DermPath Lab Received: 05/27/2021 08:08 AM Pathologist: Ania Martinez MD Specimen: Skin, left lower cheek 12:35 PM CDT DERMATOPATHOLOGY LABORATORY Final Diagnosis Specimen A. 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 Path#[id number]. Check margins 12:35 PM CDT DERMATOPATHOLOGY LABORATORY Gross Description Specimen A: Received is one formalin filled container labeled with the patient's name and designated left lower cheek. The specimen consists of a non-oriented ellipse of skin measuring 32b45o6 mm. The epidermal surface is unremarkable. The margin is inked green. The 12 o'clock and 6 o'clock tips are submitted in cassette 1. The remainder of the ellipse is serially sectioned and submitted in cassette 2-3. Jar 0. 12:35 PM CDT DERMATOPATHOLOGY LABORATORY Microscopic Description Specimen A. SKIN, left lower cheek: There are multiple foci of parakeratosis, in which the lower half of the epidermis shows disorderly maturation of keratinocytes with nuclear pleomorphism. This lesion is present at one tip of the specimen and at both lateral margins of the specimen. There are fibroblasts and collagen bundles oriented parallel to the skin surface. There are elongated blood vessels, some of which are oriented perpendicular to the skin surface. No residual squamous cell carcinoma is identified. 1 12:35 PM CDT DERMATOPATHOLOGY LABORATORY Disclaimer An external [...] purposes. Billing Codes Specimen Charges Stain Charges 33470 1 12:35 PM CDT DERMATOPATHOLOGY LABORATORY Embedded Images 12:35 PM CDT DERMATOPATHOLOGY LABORATORY Pathology/Cytolog y TISSUE SPECIMEN FROM SKIN / Unknown 05/26/2021 05/27/2021 8:08 AM CDT Richi Cardoza MD LAB - PATHOLOGY/CYTO LOGY ORDERABLES DERMATOPATHOLOGY LABORATORY [facility] - Department of Dermatology [facility] Medicine [address] [place] [address], [address] [phone] documented in this encounter Visit Diagnoses Not on filedocumented in this encounter Care Teams Emergency Management Program Specialist Relationship Specialty Start Date End Date Ross Bailey MD [address] [place] [address] PCP - General Family Medicine 06/08/21 Valeria Krishnamurthy RN Shift Superintendent Caustic Cresylate 11/03/13 documented as of this encounter
--- OUTSIDE RECORDS SUMMARY | 2024-12-27 01:10 | XMS_ITS | Encounter Summary ---
Author Organization [facility] Address [address] [facility] [place] [address] Care Team Providers Care Parts Professional Name Role Phone Valeria Krishnamurthy RN Unavailable [phone] Ross Bailey MD Primary Care Provider [phone] Encounter Details Date Type Department Care Team (Late st Contact Info) Description 11/21/2022 Lab Requisition [facility] Care DermPath Lab [address] [facility] [place] [phone] Richi Cardoza MD [address] [facility] [place] [address] Social History Tobacco Use Types Packs/Day [...] Info) Description 03/19/2025 9:30 AM CDT Appointment [facility] Vascular Services [address] [facility], [address] [place] [address] 03/19/2025 10:10 AM CDT Office Visit [facility] Medical Group - Surgery [address] [facility], [address] [place] [address] [place] [address] [facility] [address] [place] [address] documented as of this encounter Procedures Procedure Name Priority Date/Time Associated Diagnosis Comments DERMATOPATHOLOGY Routine 11/21/2022 12:0 0 AM CABIN AGENT documented in this encounter Results * DERMATOPATHOLOGY (11/21/2022 12:00 AM CABIN AGENT) Case Report Dermatopathology Report Case: [id number] Authorizing Provider: Richi Cardoza MD Collected: 11/21/2022 12:00 AM Ordering Location: [facility] DermPath Lab Received: 11/21/2022 04:26 PM Pathologist: Cristin Mcgill MD Specimen: Skin, left earlobe 3 12:54 PM [facility] DERMATOPATHOLOGY LABORATORY Final Diagnosis Specimen A. 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 The specimen consists of a shave biopsy measuring 7x6x2 mm. Jar 0. 3 12:54 PM CABIN AGENT DERMATOPATHOLOGY LABORATORY Microscopic Description Specimen A. SKIN, left earlobe: The epidermis shows parakeratosis, full thickness disorderly maturation of keratinocytes, mitoses at different levels, and dyskeratotic cells. The lesion extends to the base of the biopsy. COMMENT: An invasive squamous cell carcinoma cannot be ruled out. 3 12:54 PM [facility] DERMATOPATHOLOGY LABORATORY Disclaimer An external and internal positive and negative controls are appropriate for the histochemical, immunohistochemical and immunofluorescence stain(s) in this case (if any), except where stated explicitly. The performance characteristics of the stain(s) cited in this report were developed and its performance characteristic determined by the Dermatopathology Laboratory at [facility], directed by Dr. Diogo Holland. These tests need not be, and therefore are not, approved by the [place] Food and Drug Administration. The tests are used for clinical purposes. Billing Codes Specimen Charges Stain Charges 54430 1 3 12:54 PM CABIN AGENT DERMATOPATHOLOGY LABORATORY Embedded Images 3 12:54 PM [facility] DERMATOPATHOLOGY LABORATORY Pathology/Cytolog y TISSUE SPECIMEN FROM SKIN / Unknown 11/21/2022 11/21/2022 4:26 PM CABIN AGENT Richi Cardoza MD LAB - PATHOLOGY/CYTO LOGY ORDERABLES DERMATOPATHOLOGY LABORATORY [facility] - Department of Dermatology [address], [address] [phone] documented in this encounter Visit Diagnoses Not on filedocumented in this encounter Care Teams Parts Professional Relationship Specialty Start Date End Date Ross Bailey MD [address] [place] [address] PCP - General Family Medicine 06/08/21 Valeria Krishnamurthy, RN Pumper Gauger Apprentice 11/03/13 documented as of this encounter
--- OUTSIDE RECORDS SUMMARY | 2024-12-27 01:10 | XMS_ITS | Continuity of Care Document ---
Author Organization [facility] Address [address] [place] [address] [address] [place] [address] Phone Care Team Providers Care Veterinary Epidemiologist Name Role Phone Dave Gipson Unavailable Unavailable Procedures Procedure Date Eye Exam & Treatment Dilated Retinal Exam W Interpretation Oc Refraction Office/outpatient Visit, [facility] Dilated Retinal Exam W Interpretation Oc No Script Advance Directives Directive Yes / No Effective Date File Name No Information Encounters Encounter Description Practice Location Reason(s) For Visit Diagnoses Date Provider Providers Copied on Encounter [facility], [address] [place] [address] [address], [place], [place], [id number], tel:[phone] [facility] No Information Oct-2 9-201 0 Brandan Acosta. [facility]ly [facility] , [address], [place], [place], [facility], [place]. tel:[phone] Office/outpat ient Visit, [facility], [address] [place] [address] [address], [place], [place], [address], tel:[phone] [facility] No Information Oct-0 6-200 9 Krishnasamy Hans. [address] [facility] [address], [place], [place], [facility], [place]. tel:[phone] Family History Family Member Type Diagnosis Age At Onset No Information Payers Payer name Insurance type Covered republican ID Authoriza tion(s) [place] [id number] [facility] [id number] Social History Type Description Quantity Date Captured Comments Sex Male Smoking Status No Information Chief Complaint And Reason For Visit No Information Reason For Referral Reason For Referral No Information History Of Present Illness Encounter Date Complaint History Of Prese nt Illness No Information Functional Status Date Functional Assessmen t No Information Instructions Date Instruction Additional Infor mation No Information Assessments Type Assessment Date No Information Patient Care Teams Name Effective Dates (start - stop) Status Members No Information
--- OUTSIDE RECORDS SUMMARY | 2024-12-27 01:10 | XMS_ITS | Encounter Summary ---
Author Organization [facility] Health Address [address] [facility] [place] [address] Care Team Providers Care Construction Field Engineer Name Role Phone Gonzalo Conway MD Primary Care Provider Valeria Krishnamurthy RN Unavailable [phone] Ross Bailey MD Primary Care Provider [phone] Encounter Details Date Type Department Care Team (Late st Contact Info) Description 02/13/2014 [facility] Outpatient Visit EXTERNAL NON-[facility] DEPT Bari Bermudez MD [address] [place] [address] [address] [place] [address] Social History Tobacco Use Types [...] Info) Description 03/19/2025 9:30 AM CDT Appointment [facility] Health Vascular Services [address] [place] [address], [facility] [address] [place] [address] 03/19/2025 10:10 AM CDT Office Visit [facility] Medical Group - Surgery [address] [place] [address], [address] [place] [address] Bari Bermudez MD [address] [place] [address] [address] [place] [address] documented as of this encounter Visit Diagnoses Not on filedocumented in this encounter Care Teams Construction Field Engineer Relationship Specialty Start Date End Date Gonzalo Conway MD [address] [facility] [place] [address] PCP - General 02/25/10 11/12/18 Ross Bailey MD [address] [place] [address] PCP - General Family Medicine 06/08/21 Valeria Krishnamurthy, RN Patrol Driver 11/03/13 documented as of this encounter
--- OUTSIDE RECORDS SUMMARY | 2024-12-27 01:11 | XMS_ITS | CONTINUITY OF CARE DOCUMENT ---
Author Name nathaly andersen Address Unknown Organization [facility] Address [address] [address] [address] [place] [address] Phone [phone] Care Team Providers Care Supervisor Grading Name Role Phone Itz ALBARADO, Annette Unavailable [phone] EDGAR SOSA MD Unavailable EDGAR SOSA MD Unavailable [phone] PROBLEMS Condition Status Date Provider Notes Diabetes mellitus, type 2 active Annette grant MD Essential hypertension active Annette Mobley MD Hyperlipidemia active Annette Mobley MD Hx of DVT active Annette Mobley MD Former smoker active Annette Mobley MD Syncope active Annette Mobley MD Peripheral artery disease active Annette grant MD Aortic stenosis--severe s/p transcarotid TAVR 12/22--echo ef nl, 04/2024 active Al Erazo Amputation of right leg, below the knee active Annette Mobley MD Dizziness active Annette Mobley MD Fatigue active Annette Mobley MD CAD--PCI of 90% of LAD, 8x27 metal stent to left subclavian, 11/2022 active Annette Mobley MD Leg pain / neuropathy active Al Erazo ENCOUNTERS Date Type Provider Location Encounter Diag nosis - In-person encounter Office Visit Annette Mobley MD [facility] Office Leg pain / neuropathy - In-person encounter Office Visit Annette Mobley MD [facility] Aortic stenosis--severe s/p transcarotid TAVR 12/22--echo ef nl, 04/2024 - In-person encounter Office Visit Annette Mobley MD [facility] - In-person encounter Office Visit Annette Mobley MD [place] [facility] - In-person encounter Office Visit Annette Mobley MD [facility] Aortic stenosis--severe s/p transcarotid TAVR 12/22--echo ef nl, 04/2024 - In-person encounter Office Visit Adrian Raphael MD [facility] Office - In-person encounter Office Visit Adrian Raphael MD [facility] Office - In-person encounter Office Visit Annette Mobley MD [facility] Aortic stenosis--severe s/p transcarotid TAVR 12/22--echo ef nl, AD--PCI of 90% of LAD, 8x27 metal stent to left subclavian, 11/2022 - In-person encounter Office Visit Annette Mobley MD [facility] Aortic stenosis--severe s/p transcarotid TAVR 12/22--echo ef nl, 04/2024 - In-person encounter Office Visit Adrian Raphael MD [facility] Office - In-person encounter Office Visit Annette Mobley MD [place] [facility] Diabetes mellitus, type 2Essential hypertensionHyperlipidemiaHx of DVTFormer smokerSyncopePeripheral artery diseaseAortic stenosis--severe s/p transcarotid TAVR 12/22--echo ef nl, mputation of right leg, below the kneeDizzinessFatigue VITAL SIGNS Date Observation Value Provider Body Mass Index (Ratio) 24.90 kg/m2 Berry Mobley MD blood pressure, diastolic 71 mm[Hg] Li nkLogic blood pressure, systolic 116 mm[Hg] Jaja kLogic weight E&M 159 [lb_av] Echo Dean s blood pressure, diastolic 71 mm[Hg] Johnathan Gerber blood pressure, systolic 116 mm[Hg] Carla Gerber pulse rate 88 /min Echo Dean s oxygen saturation, oximetry 97 % Echo Gerber blood pressure, cuff size regular Br ted Gerber height E&M 67 [in_i] Echo Dean s Body Mass Index (Ratio) 24.90 kg/m2 Berry Mobley MD blood pressure, diastolic 65 mm[Hg] Vi pin Counts Include [facility] blood [facility], systolic 131 mm[Hg] Vip in [facility] oxygen saturation, oximetry 97 % [facility] respiratory rate E&M 20 /min Hubert M maanan pulse rate 66 /min [facility] weight E&M 159 [lb_av] [facility] [in_i] [facility] Body Mass Index (Ratio) 24.74 kg/m2 Sulma chalo Membreno blood pressure, cuff size regular Fa shania Ortez blood pressure, diastolic 81 mm[Hg] Fa ith Ortez blood pressure, systolic 113 mm[Hg] Neal th Ortez oxygen saturation, oximetry 98 % Jewell Ortez respiratory rate E&M 16 /min Jewell Ruben iller pulse rate 78 /min Jewell Ortez weight E&M 158 [lb_av] Jewell Ortez height E&M 67 [in_i] Jewell Ortez Body Mass Index (Ratio) 23.65 kg/m2 Berry Mobley MD blood pressure, diastolic 55 mm[Hg] Emiliano Marie blood pressure, systolic 116 mm[Hg] She anastasia Marie weight E&M 151 [lb_av] Radha Marie blood pressure, cuff size regular Emiliano Marie pulse rate 84 /min Radha Marie respiratory rate E&M 20 /min Radha Marie oxygen saturation, oximetry 98 % Radha Marie height E&M 67 [in_i] Radha Marie Body Mass Index (Ratio) 23.65 kg/m2 Berry Mobley MD blood pressure, diastolic 60 mm[Hg] St marckregis Suarez blood pressure, systolic 114 mm[Hg] Sta pooja Suarez oxygen saturation, oximetry 97 % Shakirapooja Suarez pulse rate 73 /min Shakirapooja Suarez respiratory rate E&M 18 /min Shakirapooja baugh weight E&M 151 [lb_av] Shakirapooja Suarez height E&M 67 [in_i] Shakira Suarez Body Mass Index (Ratio) 24.59 kg/m2 Fermín Raphael MD blood pressure, diastolic 61 mm[Hg] Lyndsey magana [place] blood pressure, systolic 142 mm[Hg] [facility] phyllis Parish blood pressure, cuff size regular Lyndsey Parish oxygen saturation, oximetry 98 % Vivienne Parish respiratory rate E&M 16 /min Ruma Parish pulse rate 100 /min Vivienne reyes weight E&M 157 [lb_av] Vivienne reyes height E&M 67 [in_i] Vivienne reyes Body Mass Index (Ratio) 24.12 kg/m2 Fermín Raphael MD blood pressure, diastolic 71 mm[Hg] Lyndsey magana [place] blood pressure, systolic 155 mm[Hg] Michael ferguson [place] oxygen saturation, oximetry 98 % Vivienne [place] pulse rate 80 /min Vivienne [facility] respiratory rate E&M 16 /min Ruma sahrp [place] blood pressure, cuff size large Lyndsey magana [place] weight E&M 154 [lb_av] Vivienne Christinaalyssia amy height E&M 67 [in_i] Vivienne Christinaalyssia amy Body Mass Index (Ratio) 25.21 kg/m2 Dino Nieves blood pressure, diastolic 60 mm[Hg] St debra [place] blood pressure, systolic 150 mm[Hg] Marky carlos alberto [place] oxygen saturation, oximetry 98 % Madhavi [place] pulse rate 95 /min Madhavi Amayaga n weight E&M 161 [lb_av] Madhavi Lohga n respiratory rate E&M 16 /min Huan asher [place] blood pressure, cuff size small St debra [place] height E&M 67 [in_i] Madhavi Amayaga n Body Mass Index (Ratio) 24.43 kg/m2 Berry Mobley MD respiratory rate E&M 18 /min Mary christianson height E&M 67 [in_i] Mary White blood pressure, cuff size large An jenny White blood pressure, diastolic 84 mm[Hg] An jenny White blood pressure, systolic 156 mm[Hg] Any nelda White oxygen saturation, oximetry 98 % Mary White pulse rate 86 /min Mary White weight E&M 156 [lb_av] Mary Christopher Body Mass Index (Ratio) 25.21 kg/m2 Fermín Raphael MD blood pressure, diastolic 97 mm[Hg] St syed Erick blood pressure, systolic 136 mm[Hg] Mamta patton Erick oxygen saturation, oximetry 96 % Shakira Erick respiratory rate E&M 16 /min Shakira Amy baugh pulse rate 85 /min Shakira Erick weight E&M 161 [lb_av] Shakira Erick height E&M 67 [in_i] Shakira Erick Body Mass Index (Ratio) 25.06 kg/m2 Berry Mobley MD blood pressure, diastolic 65 mm[Hg] Ri chino Huttonerson blood pressure, systolic 125 mm[Hg] Himanshu phyllis Augustin oxygen saturation, oximetry 98 % Lucy Ruffin blood pressure, cuff size regular Ri chino Ruffin respiratory rate E&M 16 /min Evan Ruffin pulse rate 64 /min Lucy Chacon son weight E&M 160 [lb_av] Lucy Chacon son height E&M 67 [in_i] Lucy Chacon son ALLERGIES Allergy Name Onset Date Reaction Criticality Status LISINOPRIL hives hives High Criticality active RESULTS Date Observation Value Provider Reference Range Interpretation Location mean platelet volume 10.0 fL [facility] 7.5-12.5 Normal platelet count 208 THOUSAND/ UL Link[facility] 140-400 Normal red blood cell distribution width 13.1 % [facility] 11.0-15.0 Normal mean corpuscular hemoglobin concentration, RBC 33.3 G/DL [facility] 32.0-36.0 Normal mean corpuscular hemoglobin, RBC 28.6 pg [facility] 27.0-33.0 Normal mean corpuscular volume, RBC 85.7 fL [facility] 80.0-100.0 Normal hematocrit, blood 39.6 % [facility] 38.5-50.0 Normal hemoglobin electrophoresis, blood 13.2 [facility] 13.2-17.1 Normal erythrocyte (RBC) count 4.62 MILLION/U L [facility] 4.20-5.80 Normal leukocyte (white blood cells) count, blood 8.3 THOUSAND/ UL [facility] 3.8-10.8 Normal NT-pro BNP 987 Link[facility] <=450 High [facility], [place] [address] activated partial thromboplastin time (aPTT) 33 s [facility] 27-37 Normal C, [place] [address] international normalized ratio (INR) 2.0 [facility] 0.9-1.2 [facility], [place] [address] prothrombin time (patient) 21.9 s [facility] 9.2-13.5 High [facility], [address] [address] HISTORY OF MEDICATION USE Medication Status Instructions Dates Provider Indications Com ments gabapentin 100 mg capsule active TAKE ONE CAPSULE IN THE EVENING TIME DAILY 7 Al Falconzaluisa clopidogrel 75 mg tablet active TAKE 1 TABLET BY MOUTH EVERY DAY 0 Annette Mobley MD Eliquis 2.5 mg tablet active Take 1 tablet by mouth twice a day 7 Al Falconzaluisa clopidogrel 75 mg tablet completed - 2 Al Falconzaluisa metformin 500 mg tablet active Noemymatt David NP Eliquis 5 mg tablet completed - 7 Adrian Raphael MD Januvia 100 mg tablet active Al Erazo Jantoven 4 mg tablet completed - 9 Lavon Newsome fenofibrate 160 mg tablet completed - 9 Lavon Newsome pentoxifylline 400 mg tablet extended release active Al Erazo ezetimibe 10 mg tablet active Al Erazo trazodone 50 mg tablet active Al Erazo amlodipine 5 mg tablet active Al Erazo hydrocodone-acetam inophen 5-325 mg tablet active TAKE 1 TABLET BY MOUTH EVERY 4 HOURS NEEDED FOR PAIN Al Erazo pravastatin 40 mg tablet active Al Erazo metformin 500 mg tablet completed - 9 Lavon Newsome SOCIAL HISTORY Date Observation Value Provider smoking status Never smoker Al Erazo smoking status Never smoker Al Erazo smoking status Never smoker Al Erazo social history E&M S moking History: Bakari ford has never smoked. Al Erazo smoking status Never smoker Radha Marie social history reviewed E&M revi ewed - no changes required Al Erazo cigarette use yes Lavon Newsome smoking status Former smoker Lavon stacy social history reviewed E&M revi ewed - no changes required Annette Mobley MD cigarette use yes Vivienne Oliver magana smoking status Former smoker Vivienne mullins cigarette use yes Vivienne Oliver magana smoking status Former smoker Vivienne mullins cigarette use yes Madhavi Luna an smoking status Former smoker Madhavi Lee kirsty social history reviewed E&M revi ewed - no changes required Al Erazo social history E&M S moking History: Bakari ford is a former smoker. Al Erazo cigarette use yes Mary White smoking status Former smoker Mary calloway social history reviewed E&M revi ewed - no changes required Annette Mobley MD cigarette use yes Shakira Suarez smoking status Former smoker Shakira Suarez social history E&M S moking History: Bakari ford is a former smoker. Al Falconzai cigarette use yes Lucy noe smoking status Former smoker Lucy marc social history reviewed E&M bassem tao - no changes required Al Ahmedzai FUNCTIONAL STATUS Date Observation Value Provider HRA, CV Assess/Plan, Angina (inactive) Management Plan continue current therapy Al Ahmedzai HRA, CV Assess/Plan, Angina (inactive) Management Plan continue current therapy Al Ahmedzai HRA, CV Assess/Plan, Angina (inactive) Management Plan continue current therapy Al Ahmedzai INSURANCE PROVIDERS Payer name Policy type / Coverage type [place] [employer] party ID [place]IC[place] Medicare [id number] [place] MED[employer] SECONDARY Commercial insurance [facility] [id number] ADVANCE DIRECTIVES Name Date DISCUSSED - NO DECISION MADE TREATMENT PLAN Date Name Performer [id number],S, Al Kwonmedza i [id number],S, Al Kwonmedza i [id number],S, Al Kwonmedza i [id number],S, Al Kwonmedza i [id number],S, Al Kwonmedza i [id number],B, Annette Mobley MD [id number],B, Annette Mobley MD [id number],B, Annette Mobley MD [id number],BAnnette MD [id number],B, Annette Mobley MD [id number],S, Adrian barker MD [id number],S, Adrian barker MD [id number],C,R ight Ao-Fem-Pop, Left Ax-Fem bypass. Adrian Raphael MD [id number],C,s/p EVOLUTE 2 9 mm TAVR Adrian Raphael MD [id number],B,Continue Plav ix for 1 year Adrian Raphael MD [id number],C,C /o being tired all the time. O rders: 9 9213 MOD 30-39min (CPT-26895) Noemy David NP [id number],C, H is updated medication list for this problem includes: Fenofibrate 160 Mg Tablet (Fenofibrate) Ezetimibe 10 Mg Tablet (Ezetimibe) Pravastatin 40 Mg Tablet (Pravastatin) Noemy David NP [id number],C,s ees PCP H is updated medication list for this problem includes: Metformin 500 Mg Tablet (Metformin) Januvia 100 Mg Tablet (Sitagliptin phosphate) Metformin 500 Mg Tablet (Metformin) Noemy David NP [id number],C,U nunderwent transcarotid the TAVR successfully on 12/01/22 with Evolut FX 29 mm valve. Noemy David NP [id number],C, D enies chest pain His updated medication list for this problem includes: Clopidogrel 75 Mg Tablet (Clopidogrel) Jantoven 4 Mg Tablet (Warfarin) Amlodipine 5 Mg Tablet (Amlodipine) Orders: 9213 MOD 30-39min (CPT-48667) Noemy Ganluri TANA [id number],C, B P today: 155/71 P rior BP: 150/60 (11/29/2022) His updated medication list for this problem includes: Amlodipine 5 Mg Tablet (Amlodipine) Noemy Ganludana FAJARDO [id number],SAl i [id number],SAl i [id number],S, Al Ahmedza i [id number],S, Al Ahmedza i [id number],S, Al Ahmedza i [id number],S, Al Ahmedza i [id number],S, Al Ahmedza i [id number],S, Al Ahmedza i [id number],S, Al Ahmedza i [id number],S, Al Ahmedza i [id number],S, Al Ahmedza i [id number],S, Al Ahmedza i [id number],S, Al Ahmedza i [id number],B,unsure if rel ated to Adrian Raphael MD [id number],S, Adrian barker MD [id number],W, repeat echo. refer to valve clinic. Adrian Raphael MD [id number],S, Al Ahmedza i [id number],S, Al Ahmedza i [id number],S, Al Ahmedza i [id number],S, Al Ahmedza i [id number],S, Al Ahmedza i [id number],S, Al Ahmedza i Cardiology: H is updated medication list for this problem includes: Clopidogrel 75 Mg Tablet (Clopidogrel) ..... Take 1 tablet by mouth every day Annette Mobley MD Cardiology: O rders: C omplete Echo (78030) Annette Mobley MD Cardiology: B P today: 116/71 P rior BP: 131/65 (04/30/2024) His updated medication list for this problem includes: Amlodipine 5 Mg Tablet (Amlodipine) Orders: C omplete Echo (64135) Annette Mobley MD Cardiology:This visi t has been a part of the consistent, comprehensive, and ongoing management of the chronic medical condition(s) listed above for the patient. Orders: C omplete Echo (34097) His updated medication list for this problem includes: Clopidogrel 75 Mg Tablet (Clopidogrel) ..... Take 1 tablet by mouth every day Amlodipine 5 Mg Tablet (Amlodipine) Annette Mobley MD Cardiology Al Erazo Cardiology[RxRsp]: H is updated medication list for this problem includes: Amlodipine 5 Mg Tablet (Amlodipine) T his visit has been a part of the consistent, comprehensive, and ongoing management of the chronic medical condition(s) listed above for the patient. Annette Mobley MD Cardiology[RxRsp]: H is updated medication list for this problem includes: Ezetimibe 10 Mg Tablet (Ezetimibe) Pravastatin 40 Mg Tablet (Pravastatin) Al Erazo Cardiology[RxRsp] Al Erazo Cardiology[RxRsp]: B P today: 131/65 P rior BP: 113/81 (10/31/2023) His updated medication list for this problem includes: Amlodipine 5 Mg Tablet (Amlodipine) Al Erazo Cardiology[RxRsp]: H is updated medication list for this problem includes: Metformin 500 Mg Tablet (Metformin) Januvia 100 Mg Tablet (Sitagliptin phosphate) Al Erazo Cardiology[RxRsp] Al Erazo Cardiology[RxRsp]: H is updated medication list for this problem includes: Amlodipine 5 Mg Tablet (Amlodipine) Al Erazo Cardiology: H is updated medication list for this problem includes: Ezetimibe 10 Mg Tablet (Ezetimibe) Pravastatin 40 Mg Tablet (Pravastatin) Al Erazo Cardiology Al Erazo Cardiology Al sung Cardiology: B P today: 113/81 P rior BP: 116/55 (07/03/2023) His updated medication list for this problem includes: Amlodipine 5 Mg Tablet (Amlodipine) Al sung Cardiology: H is updated medication list for this problem includes: Metformin 500 Mg Tablet (Metformin) Januvia 100 Mg Tablet (Sitagliptin phosphate) Al sung Cardiology Al Erazo Cardiology Al Erazo Cardiology Al Erazo Cardiology Al Erazo Cardiology Al Erazo Cardiology Al Erazo Cardiology High complexity Cortes Mobley MD Cardiology High complexity Cortes Mobley MD Cardiology High complexity Cortes Mobley MD Cardiology High complexity Cortes Mobley MD Cardiology High complexity Tonmanisha Mobley MD Cardiology Adrian Raphael MD Cardiology Adrian Raphael MD Cardiology:Right Ao-Fem-Pop, Lef t Ax-Fem bypass. Adrian Raphael MD Cardiology:s/p EVOLUTE 29 mm TAV R Adrian Raphael MD Cardiology:Continue Plavix for 1 year Adrian Raphael MD Cardiology:C/o being tired all the time. O rders: 9 9214 MOD 30-39min (CPT-53998) Noemy David [employer] Cardiology: H is updated medication list for this problem includes: Fenofibrate 160 Mg Tablet (Fenofibrate) Ezetimibe 10 Mg Tablet (Ezetimibe) Pravastatin 40 Mg Tablet (Pravastatin) Noemy Ganludana [employer] Cardiology:sees PCP H is updated medication list for this problem includes: Metformin 500 Mg Tablet (Metformin) Januvia 100 Mg Tablet (Sitagliptin phosphate) Metformin 500 Mg Tablet (Metformin) Noemy Ganluri [employer] Cardiology:Ununderwe nt transcarotid the TAVR successfully on 12/01/22 with Evolut FX 29 mm valve. Noemy Ganluri [employer] Cardiology: D enies chest pain His updated medication list for this problem includes: Clopidogrel 75 Mg Tablet (Clopidogrel) Jantoven 4 Mg Tablet (Warfarin) Amlodipine 5 Mg Tablet (Amlodipine) Orders: 9 9214 MOD 30-39min (CPT-20380) Noemy Ganluri [employer] Cardiology: B P today: 155/71 P rior BP: 150/60 (11/29/2022) His updated medication list for this problem includes: Amlodipine 5 Mg Tablet (Amlodipine) Noemy Ganluri [employer] Cardiology Al Ahmedzai Cardiology Al Ahmedzai Cardiology Al Ahmedzai Cardiology Al Ahmedzai Cardiology Al Ahmedzai Cardiology Al Ahmedzai Cardiology Al Ahmedzai Cardiology Al Ahmedzai Cardiology Al Ahmedzai Cardiology Al Ahmedzai Cardiology Al Ahmedzai Cardiology Al Ahmedzai Cardiology Al Ahmedzai Cardiology:unsure if related to Adrian Raphael MD Cardiology Adrian Raphael MD Cardiology: repeat echo. refer to valve clinic. Adrian Raphael MD Cardiology Al Ahmedzai Cardiology Al Ahmedzai Cardiology Al Ahmedzai Cardiology Al Ahmedzai Cardiology Al Ahmedzai Cardiology Al Ahmedzai Date Name Complete Echo Complete Echo Complete Echo CBC (H/H, RBC, INDIC ES, WBC, PLT) Complete Echo PROBNP, N TERMINAL CT Angio, abdomen an d pelvis CT Cardiac with cont rast (Pre-Ablation) BASIC METABOLIC PANE L W/EGFR HISTORY OF PROCEDURES Procedure Date Procedure Name Provider Procedure Notes S tatus Complex e/m visit add on Annette Mobley MD completed Complex e/m visit add on Annette Mobley MD completed
--- NOTE | 2024-12-27 01:25 | ED_ITS ---
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 Patient states today around 4:00 p.m. he began developing sharp intermittent pain to the left stump that occurred below his knee every 8 seconds. He states he took his dose of gabapentin and a 5 mg [place] at 7:00 p.m. without improvement. He then took another good [place] at 10:00 p.m.. Pain persisted so the patient came to the ED for evaluation, however upon my evaluation the patient states this pain is now a 1-2/10. He states he has been dealing with intermittent chronic pain to his stump for several years. He was recently evaluated by his surgeon, Dr. Bermudez, for his chronic pain and had an outpatient Doppler performed which was reportedly unremarkable. Patient is taking Eliquis 5 mg twice daily and is compliant with his medications. Denies fever, rashes, injury or trauma. He is scheduled to see pain management for the 1st time in a couple weeks. Related Data Home Medications ?Medication ?Instructions ?Recorded ?Confirmed ?Last Taken ?Type aspirin 81 mg tablet,delayed 81 mg PO DAILY 09/27/19 11/29/24 Unknown History release cholecalciferol (vitamin D3) 100 4,000 unit PO DAILY 09/27/19 11/29/24 Unknown History mcg (4,000 unit) capsule magnesium 200 mg tablet 400 mg PO DAILY 08/12/24 11/29/24 Unknown History pentoxifylline 400 mg 400 mg PO TID 08/12/24 11/29/24 Unknown History tablet,extended release Allergies Allergy/AdvReac Type Severity Reaction Status Date / Time lisinopril Allergy Unknown Anaphylaxis Verified 08/12/24 11:30 donepezil (From Aricept) AdvReac Mild Nightmare Verified 08/12/24 11:30 Review of Systems Review of Systems: All systems reviewed & are unremarkable except as noted in HPI and below PMFSH Past Medical History Medical History Stage 3 chronic kidney disease Chronic insomnia Dementia PAD (peripheral artery disease) Mild cognitive impairment Stenosis of subclavian artery s/p stent Status post insertion of drug-eluting stent into left anterior descending (LAD) artery Severe aortic stenosis S/P TAVR Left trigger finger left third and fourth digits 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 Surgical History Surgical History History of transcatheter aortic valve replacement (TAVR) History of placement of stent in LAD coronary artery H/O lower limb amputation History of left below knee amputation Family History Family History Sibling Family history of malignant neoplasm Family history of lung cancer Other Diabetes mellitus Heart disease Hypertension Lung cancer Social History Social History Social History: Smoking packs per day: 3 Smoking cigarettes per day: 60.0 Years smoked: 40 Smoking pack-years: 120.00 Smoking status: Former smoker Tobacco type: cigarettes Second hand tobacco smoke exposure: Yes Smoking end date: 10/02/96 Alcohol intake: never Substance use: never Substance use type: does not use Do You Feel Safe in your Home?: Yes Lack of Transportation: No Lack of Food: Never True Current Housing: I Have Housing Concerned About Future Housing: No Difficulty Paying Gas/Electric Bills: No Difficulty Paying for Meds: No Currently Unemployed: No Education: High School Diploma/GED Difficulty w/ Childcare or Family Care: No Living arrangements: with family Occupation/Education: retired Gender identity (if verbalized by the patient): Male Sexual Orientation (if Verbalized by the Patient): Straight or Heterosexual Exam Narrative: GENERAL: Well-appearing, well-nourished, and in no acute distress. HEAD: Normocephalic, atraumatic. EYES: EOMI. ENT: Nares clear, no rhinorrhea or epistaxis. Mucous membranes moist. NECK: Supple. CHEST: Clear to auscultation. No respiratory distress. HEART: Regular rate and rhythm. No murmur heard. Normal peripheral pulses. ABDOMEN: Soft, nontender, nondistended, normal active bowel sounds. EXTREMITIES: L BKA. Well-healed surgical scar. No significant tenderness to palpation of the knee or proximal tib-fib. Full range of motion of knee. No tenderness remainder of thigh. No skin changes or rashes. Popliteal pulse 2+. Skin is pink, warm and dry. Cap refill less than 2. SKIN: Warm, dry, no rash. NEURO: No focal deficits. Alert and oriented x3 Course Vital Signs Vital signs: Vital Signs Temperature 97.4 F L 12/27/24 00:06 Pulse Rate 66 12/27/24 00:06 Respiratory Rate 16 12/27/24 00:06 Blood Pressure 140/64 12/27/24 00:06 Pulse Oximetry 100 12/27/24 00:06 Oxygen Delivery Room Air 12/27/24 00:06 Temperature 97.8 F 12/27/24 01:45 Pulse Rate 70 12/27/24 01:45 Respiratory Rate 19 12/27/24 01:45 Blood Pressure 142/60 H 12/27/24 01:45 Pulse Oximetry 98 12/27/24 01:45 Oxygen Delivery Room Air 12/27/24 00:06 MDM - Extremity (Nontraumatic) MDM Narrative Medical decision making narrative: 84-year-old male with history of left BKA and chronic neuropathic pain presents to emergency department for acute on chronic pain to his stump that started at 4:00 p.m. today. See HPI for further history. Triage vitals are stable. Exam is significant for the above. Notably, patient has a 2+ popliteal pulse, skin is pink, warm and dry, he has no significant tenderness to palpation of the extremity, cap refill is less than 2 and sensation is intact. Reports upon arri teressa to the ED his pain has improved after taking his at-home pain medications. Shared decision making regarding goals of care today. Offered x-ray, however patient and politely declined given no trauma, no signs of infection/osteomyelitis. They agree there would be of little benefit to repeat venous duplex given he had a recent outpatient negative duplex and is currently on anticoagulants. Additionally discussed low need for CTA of the extremity given pulses are easily palpated and heard via bedside Doppler, again also on anticoagulants. Presentation is consistent with acute on chronic neuropathic pain. He was given a small dose of IM Dilaudid in the ED and agrees to follow- up closely with his PCP and his pain management apt in couple weeks. Advised him to continue his at home pain regimen. Discussed strict ED return precautions. He and his were agreeable with the plan verbalized understanding. Discharged in stable condition. Discharge Plan Discharge Clinical Impression: Chronic pain after amputation Patient Disposition: Home, Self-Care Condition: Stable Instructions: Antibiotic Form, Chronic Pain (ED) Additional Instructions: Continue taking her pain medications and gabapentin as prescribed and follow-up closely with your primary care provider and pain management. Return to the emergency department if you develop a fever, rash, significantly worsening pain, or other concerning symptoms. Patient Language: Slovak Prescriptions: No Action metformin 500 mg tablet 500 mg PO DAILY Qty: 90 3RF magnesium 200 mg tablet 400 mg PO DAILY pentoxifylline 400 mg tablet extended release 400 mg PO TID Rx Instructions: must administer with a meal/food cholecalciferol (vitamin D3) 4,000 unit capsule 4,000 unit PO DAILY aspirin 81 mg tablet,delayed release (DR/EC) 81 mg PO DAILY Eliquis 5 mg tablet 5 mg PO BID Qty: 60 0RF fenofibrate 160 mg tablet 160 mg PO DAILY Qty: 90 3RF pravastatin 40 mg tablet 40 mg PO DAILY Qty: 90 2RF amlodipine 5 mg tablet 5 mg PO DAILY Qty: 90 3RF rivastigmine tartrate 1.5 mg capsule 1.5 mg PO BID Qty: 180 2RF ezetimibe [Zetia] 10 mg tablet 10 mg PO DAILY Qty: 90 3RF memantine 10 mg tablet See Rx Instructions .ROUTE .COMPLEX Qty: 180 3RF Dose Instruction: TAKE 1 TABLET BY MOUTH TWICE A DAY Rx Instructions: TAKE 1 TABLET BY MOUTH TWICE A DAY hydroxyzine HCl 10 mg tablet See Rx Instructions .ROUTE .COMPLEX Qty: 90 1RF Dose Instruction: TAKE 1 TABLET BY MOUTH EVERY DAY AT BEDTIME NEEDED FOR INSOMNIA Rx Instructions: TAKE 1 TABLET BY MOUTH EVERY DAY AT BEDTIME NEEDED FOR INSOMNIA gabapentin 100 mg capsule 100 mg PO QHS Qty: 90 1RF Januvia 100 mg tablet 100 mg PO DAILY Qty: 90 2RF Follow-up/Referrals: Ross Bailey MD [Primary Care Provider] -
[2024-12-27] MEDS: HYDROmorphone HCL INJ (*CRX) 1 MG/ML SYR 0.5 MG IM (01:40)
[2024-12-27 01:45] VITALS: BP 142/60; PULSE 70; RESP 19; TEMP 36.6; O2SAT 98
== END 2024-12-27 02:15 | disposition home or self-care (01) ==
PROVIDERS: Emergency Provider Physician Assistant; PCP Family Medicine
DX: G89.29 Other chronic pain (principal); T87.89 Other complications of amputation stump; I12.9 Hypertensive chronic kidney disease with stage 1 through stage 4 chronic kidney disease, or unspecified chronic kidney disease; E11.22 Type 2 diabetes mellitus with diabetic chronic kidney disease; N18.30 Chronic kidney disease, stage 3 unspecified; Z79.01 Long term (current) use of anticoagulants; Z79.899 Other long term (current) drug therapy; F03.90 Unspecified dementia, unspecified severity, without behavioral disturbance, psychotic disturbance, mood disturbance, and anxiety; Z85.828 Personal history of other malignant neoplasm of skin; Z87.891 Personal history of nicotine dependence; Z89.512 Acquired absence of left leg below knee
CPT/HCPCS: 96372; 99283; J1171

== ENCOUNTER 2025-01-18 14:43 | Outpatient (CLI) | payer MEDICARE, OTHER, SELFPAY ==
--- NOTE | ~2025-01-18 | MR_ITS ---
MRI of the lumbar spine Clinical History: Lumbar spondylosis Technique: Axial T2-weighted images, and sagittal T1-weighted, T2-weighted, and T2 fat-sat images wer e acquired. Findings: There is no fracture or subluxation of lumbar spine. Vertebral bodies maintain normal heigh t and alignment. No suspicious bone marrow signal abnormality seen. At L1-L2, there is no disc bulge or herniation. There is mild facet arthropathy. No central canal venkat nosis or neural foraminal narrowing. At L2-L3, there is minimal disc bulge with moderate facet hypertrophy. No spinal canal stenosis. Ther e is mild bilateral neural foraminal narrowing. At L3-L4, there is minimal disc bulge with moderate facet arthropathy. No central canal stenosis. The re is mild to moderate left neural foraminal narrowing. Right neural foramen preserved. At L4-L5, there is mild disc bulge with severe facet arthropathy. No central canal stenosis. There is severe bilateral neural foraminal compromise, left worse than right. At L5-S1, there is disc bulge with severe facet arthropathy. No central canal stenosis. There is pete re bilateral neural foraminal compromise. Paravertebral soft tissues are unremarkable. Impression: Moderate to advanced degenerative spondylosis, as detailed above, with multilevel neural foraminal co mpress, worst at L4-L5 and L5-S1. Reviewed, dictated and finalized at [facility]. Impression: Moderate to advanced degenerative spondylosis, as detailed above, with multilev el neural foraminal compress, worst at L4-L5 and L5-S1.
--- OUTSIDE RECORDS SUMMARY | 2025-01-18 14:48 | XMS_ITS | Encounter Summary ---
Author Organization [facility] Health Address [address] [place] [address] Care Team Providers Care Forensics Analyst Name Role Phone Gonzalo Conway MD Primary Care Provider Valeria Krishnamurthy RN Unavailable [phone] Ross Bailey MD Primary Care Provider [phone] Encounter Details Date Type Department Care Team (Late st Contact Info) Description 02/12/2016 [facility] Outpatient Visit [facility] [address] [place] [address] [place] [address] [address] Social History Tobacco Use Types Packs/Day Years Used Date Smoking Tobacco: Former Cigarettes 2 40 0 10/02/1954 - 10/02/1994 Smokeless Tobacco: Never Alcohol Use Standard Drinks/Week Comments No 0 (1 standard drink = 0.6 oz pur e alcohol) Sex and Gender Information Value Date Recorded Sex Assigned at Not on file Legal Sex Male 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 Answer Date of Assessment Author No 01/05/2015 6:39 AM Grace Handy RN * Is person blind or have serious difficulty seeing? Answer Date of Assessment Author No 01/05/2015 6:39 AM Grace Handy RN * Does person have serious difficulty walking/climbing stairs? Answer Date of Assessment Author No 01/05/2015 6:39 AM CDT Grace Cuevas RN * Does person have difficulty dressing/bathing? Answer Date of Assessment Author No 01/05/2015 6:39 AM CDT Grace Cuevas RN * Does person have difficulty doing errands alone? Answer Date of Assessment Author No 01/05/2015 6:39 AM AGNEST Grace Cuevas RN documented as of this encounter Mental Status * Does person have difficulty concentrating/remembering/making decisions? Answer Entry Date Author No 01/05/2015 6:39 AM CDT Grace Cuevas RN documented in this encounter Plan of Treatment Upcoming Encounters Date Type Department Care Team (Late st Contact Info) Description 03/19/2025 9:30 AM CDT Appointment [facility] Vascular Services [address] [place] [address] [address] [place] [address] 03/19/2025 10:10 AM CDT Office Visit [facility] Medical Group - Surgery [address] [place] [address], [facility] [address] [place] [phone] Bari Bermudez MD [address] [place] [phone] documented as of this encounter Visit Diagnoses Not on filedocumented in this encounter Care Teams Forensics Analyst Relationship Specialty Start Date End Date Gonzalo Conway MD [address] [place] [phone] PCP - General 02/25/10 11/12/18 Ross Bailey MD [address] [place] [address] PCP - General Family Medicine 06/08/21 Valeria Krishnamurthy RN Director Product Development 11/03/13 documented as of this encounter
--- OUTSIDE RECORDS SUMMARY | 2025-01-18 14:48 | XMS_ITS | Encounter Summary ---
Author Organization [facility] Health Address [address] [place] [address] Care Team Providers Care Records Technician Name Role Phone Gonzalo Conway MD Primary Care Provider [phone] Valeria Krishnamurthy RN Unavailable [phone] Ross Bailey MD Primary Care Provider Encounter Details Date Type Department Care Team (Late st Contact Info) Description 03/02/2016 [facility] Outpatient Visit [facility] [address] [place] [address] [place] [address] [address] Social History Tobacco Use Types Packs/Day Years Used Date Smoking Tobacco: Former Cigarettes 2 40 0 10/02/1954 - 10/02/1994 Smokeless Tobacco: Never Alcohol Use Standard Drinks/Week Comments No 0 (1 standard drink = 0.6 oz pur e alcohol) Sex and Gender Information Value Date Recorded Sex Assigned at Not on file Legal 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 Vascular Services [address] [place] [address] [address] [place] [address] 03/19/2025 10:10 AM CDT Office Visit [facility] Medical Group - Surgery [address] [place] [address], [facility] [address] [place] [phone] Bari Bermudez MD [address] [place] [phone] documented as of this encounter Visit Diagnoses Not on filedocumented in this encounter Care Teams Records Technician Relationship Specialty Start Date End Date Gonzalo Conway MD [address] [place] [phone] PCP - General 02/25/10 11/12/18 Ross Bailey MD [address] [place] [address] PCP - General Family Medicine 06/08/21 Valeria Krishnamurthy RN Leather Piece Inspector 11/03/13 documented as of this encounter
--- OUTSIDE RECORDS SUMMARY | 2025-01-18 14:48 | XMS_ITS | Encounter Summary ---
Author Organization [facility] Health Address [address] [facility] [address] [place] [address] Care Team Providers Care Bag Machine Set Up Operator Name Role Phone Gonzalo Conway MD Primary Care Provider Valeria Krishnamurthy RN Unavailable [phone] Ross Bailey MD Primary Care Provider [phone] Encounter Details Date Type Department Care Team (Late st Contact Info) Description 02/13/2014 [facility] Outpatient Visit [facility] NON-[facility] [place] [address] [facility] [address] [place] [address] Social History Tobacco Use Types Packs/Day Years Used Date Smoking Tobacco: Former Cigarettes Q uit: 10/02/1994 Smokeless Tobacco: Never Comments:1994 Alcohol Use Standard Drinks/Week Comments No 0 (1 standard drink = 0.6 oz pur e alcohol) Sex and Gender Information Value Date Recorded Sex Assigned at Not on file 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 Gender Identity Not on file Sexual Orientation Not on file documented as of this encounter Plan of Treatment Upcoming Encounters Date Type Department Care Team (Late st Contact Info) Description 03/19/2025 9:30 AM CDT Appointment [facility] Health Vascular Services [address] [place] [address], [address] [place] [address] 03/19/2025 10:10 AM CDT Office Visit [facility] Medical Group - Surgery [address] [place] [address], [address] [place] [address] [place] [address] [address] documented as of this encounter Visit Diagnoses Not on filedocumented in this encounter Care Teams Bag Machine Set Up Operator Relationship Specialty Start Date End Date Gonzalo Conway MD [address] [place] [phone] PCP - General 02/25/10 11/12/18 Ross Bailey MD [address] [place] [address] PCP - General Family Medicine 06/08/21 Valeria Krishnamurthy, RN Piano Bench Assembler 11/03/13 documented as of this encounter
--- OUTSIDE RECORDS SUMMARY | 2025-01-18 14:48 | XMS_ITS | Encounter Summary ---
Author Organization [facility] Address [address] [facility] [place] [address] Care Team Providers Care Wire Spinner Name Role Phone Valeria Krishnamurthy RN Unavailable [phone] Ross Bailey MD Primary Care Provider [phone] Encounter Details Date Type Department Care Team (Late st Contact Info) Description 05/23/2023 Lab Requisition [facility] - DermPath Lab [address] [place] [phone] Richi Cardoza MD [address] [facility] [place] [address] Social History Tobacco Use Types Packs/Day Years Used Date Smoking Tobacco: Former Cigarettes 2 40 0 10/02/1954 - 10/02/1994 Smokeless Tobacco: Never Alcohol Use Standard Drinks/Week Comments No 0 (1 standard drink = 0.6 oz pur e alcohol) Sex and Gender Information Value Date Recorded Sex Assigned at Not on file 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 Answer Date of Assessment Author No 10/25/2016 11:24 AM Philly Fernandez RN * Is person blind or have serious difficulty seeing? Answer Date of Assessment Author No 10/25/2016 11:24 AM Philly Fernandez RN * Does person have serious difficulty walking/climbing stairs? Answer Date of Assessment Author No 10/25/2016 11:24 AM Philly Fernandez RN * Does person have difficulty dressing/bathing? Answer Date of Assessment Author No 10/25/2016 11:24 AM Philly Fernandez RN * Does person have difficulty doing errands alone? Answer Date of Assessment Author No 10/25/2016 11:24 AM Philly Fernandez RN documented as of this encounter Mental Status * Does person have difficulty concentrating/remembering/making decisions? Answer Entry Date Author No 10/25/2016 11:24 AM Philly Fernandez RN documented in this encounter Plan of Treatment Upcoming Encounters Date Type Department Care Team (Late st Contact Info) Description 03/19/2025 9:30 AM CDT Appointment [facility] Vascular Services [address] [place] [address], [address] [place], [place] [id number] 03/19/2025 10:10 AM CDT Office Visit [facility] Medical Group - Surgery [address] [place] [address], [address] [place] [address] Bari Bermudez MD [address] [place] [address] documented as of this encounter Procedures Procedure Name Priority Date/Time Associated Diagnosis Comments DERMATOPATHOLOGY Routine 05/22/2023 12:0 0 AM CDT documented in this encounter Results * DERMATOPATHOLOGY (05/22/2023 12:00 AM CDT) Case Report Dermatopathology Report Case: [id number] Authorizing Provider: Richi Cardoza MD Collected: 05/22/2023 12:00 AM Ordering Location: [facility] DermPath Lab Received: 05/23/2023 03:20 PM Pathologist: Ruben Holland MD Specimen: Skin, left lateral zygoma 3 3:39 PM CDT DERMATOPATHOLOGY LABORATORY Final Diagnosis Specimen A. SKIN, left lateral zygoma: SQUAMOUS CELL CARCINOMA IN SITU, PRESENT AT THE BASE OF THE SPECIMEN (D04.39) (see microscopic description and comment) 3 3:39 PM CDT DERMATOPATHOLOGY LABORATORY Clinical History [facility] vs AK: Path# [id number] 3 3:39 PM CDT DERMATOPATHOLOGY LABORATORY Gross Description Specimen A: Received is one formalin filled container labeled with the patient's name and designated left lateral zygoma. The specimen consists of a shave biopsy measuring 7x5x1 mm. Jar 0. 3 3:39 PM CDT DERMATOPATHOLOGY LABORATORY Microscopic Description [...] characteristic determined by the Dermatopathology Laboratory at [facility], directed by Dr. Diogo Holland. These tests need not be, and therefore are not, approved by the [place] Food and Drug Administration. The tests are used for clinical purposes. Billing Codes Specimen Charges Stain Charges 52425 1 3 3:39 PM CDT DERMATOPATHOLOGY LABORATORY Embedded Images 3 3:39 PM CDT DERMATOPATHOLOGY LABORATORY Pathology/Cytolog y TISSUE SPECIMEN FROM SKIN / Unknown 05/22/2023 05/23/2023 3:20 PM CDT us Richi Cardoza MD LAB - PATHOLOGY/CYTOLOGY ORDER VARSHA Final Result DERMATOPATHOLOGY LABORATORY [facility] - Department of Dermatology [address], [address] [phone] documented in this encounter Visit Diagnoses Not on filedocumented in this encounter Care Teams Wire Spinner Relationship Specialty Start Date End Date Ross Bailey MD [address] [place] [address] PCP - General Family Medicine 06/08/21 Valeria Krishnamurthy, RN Track Grinder 11/03/13 documented as of this encounter
--- OUTSIDE RECORDS SUMMARY | 2025-01-18 14:48 | XMS_ITS | Encounter Summary ---
Author Organization [facility] Health Address [address] [place] [address] Care Team Providers Care Blow Mold Technician Name Role Phone Gonzalo Conway MD Primary Care Provider [phone] Valeria Krishnamurthy RN Unavailable [phone] Ross Bailey MD Primary Care Provider [phone] Encounter Details Date Type Department Care Team (Late st Contact Info) Description 11/05/2013 [facility] Outpatient Visit EXTERNAL NON-[facility] [place] [address] [facility] [address] [place] [address] Social History Tobacco Use Types Packs/Day Years Used Date Smoking Tobacco: Former Cigarettes Q uit: 10/02/1994 Smokeless Tobacco: Never Comments:1994 Alcohol Use Standard Drinks/Week Comments No 0 (1 standard drink = 0.6 oz pur e alcohol) Sex and Gender Information Value Date Recorded Sex Assigned at Not on file Legal Sex Male 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 Medical Group - Surgery [address] [place] [address], [address] [place] [phone] [place] [address] [address] documented as of this encounter Visit Diagnoses Not on filedocumented in this encounter Care Teams Blow Mold Technician Relationship Specialty Start Date End Date Gonzalo Conway MD [address] [place] [phone] PCP - General 02/25/10 11/12/18 Ross Bailey MD [address] [place] [address] PCP - General Family Medicine 06/08/21 Valeria Krishnamurthy, RN Barrel Finisher 11/03/13 documented as of this encounter
--- OUTSIDE RECORDS SUMMARY | 2025-01-18 14:48 | XMS_ITS | Encounter Summary ---
Author Organization [facility] Address [address] [facility] [place] [address] Care Team Providers Care Special Class Welder Name Role Phone Valeria Krishnamurthy RN Unavailable [phone] Ross Bailey MD Primary Care Provider [phone] Encounter Details Date Type Department Care Team (Late st Contact Info) Description 05/27/2021 Lab Requisition [facility] Care DermPath Lab [address] 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 Gender Identity Not on file Sexual Orientation [...] Info) Description 03/19/2025 9:30 AM CDT Appointment [facility] Vascular Services [address] [place] [address], [address] [place] [address] 03/19/2025 10:10 AM CDT Office Visit [facility] Medical Group - Surgery [address] [place] [address], [address] [place] [address] Bari Bermudez MD [address] [place] [address] [address] [place] [address] documented as of this encounter Procedures Procedure Name Priority Date/Time Associated Diagnosis Comments DERMATOPATHOLOGY Routine 05/26/2021 12:0 0 AM CDT documented in this encounter Results * DERMATOPATHOLOGY (05/26/2021 12:00 AM CDT) Case Report Dermatopathology Report Case: [id number] Authorizing Provider: Richi Cardoza MD Collected: 05/26/2021 12:00 AM Ordering Location: [facility] DermPath Lab Received: 05/27/2021 08:08 AM Pathologist: Ania Martinez MD Specimen: Skin, left lower cheek 12:35 PM CDT DERMATOPATHOLOGY LABORATORY Final Diagnosis Specimen A. 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 Path#[id number]. Check margins 12:35 PM CDT DERMATOPATHOLOGY LABORATORY Gross Description Specimen A: Received is one formalin filled container labeled with the patient's name and designated left lower cheek. The specimen consists of a non-oriented ellipse of skin measuring 38e76s1 mm. The epidermal surface is unremarkable. The [...] No residual squamous cell carcinoma is identified. 12:35 PM CDT DERMATOPATHOLOGY LABORATORY Disclaimer An external and internal positive and negative controls are appropriate for the histochemical, immunohistochemical and immunofluorescence stain(s) in this case (if any), except where stated explicitly. The performance characteristics of the stain(s) cited in this report were developed and its performance characteristic determined by the Dermatopathology Laboratory at [facility], directed by Dr. Diogo Holland. These tests need not be, and therefore are not, approved by the [place] Food and Drug Administration. The tests are used for clinical purposes. Billing Codes Specimen Charges Stain Charges 07498 1 12:35 PM CDT DERMATOPATHOLOGY LABORATORY Embedded Images 12:35 PM CDT DERMATOPATHOLOGY LABORATORY Pathology/Cytolog y TISSUE SPECIMEN FROM SKIN / Unknown 05/26/2021 05/27/2021 8:08 AM CDT us Richi Cardoza MD LAB - PATHOLOGY/CYTOLOGY ORDER VARSHA Final Result DERMATOPATHOLOGY LABORATORY [facility] - Department of Derm[facility], 3rd Floor [address] [phone] documented in this encounter Visit Diagnoses Not on filedocumented in this encounter Care Teams Special Class Welder Relationship Specialty Start Date End Date Ross Bailey MD [address] [place] [address] PCP - General Family Medicine 06/08/21 Valeria Krishnamurthy, RN Abrading Machine Tender 11/03/13 documented as of this encounter
--- OUTSIDE RECORDS SUMMARY | 2025-01-18 14:48 | XMS_ITS | Clinical Summary ---
Author Organization [facility] Address [address] [place] [address] Care Team Providers Care Teacher Lip Reading Name Role Phone Ross Bailey MD Primary Care Provider [phone] Social History Tobacco Use Types Packs/Day Years Used Date Smoking Tobacco: Never Assessed Sex and Gender Information Value Date Recorded Sex Assigned at Not on file Legal Sex Male 11:37 AM QC MANAGER Gender Identity Not on file Sexual Orientation Not on file Plan of Treatment Health Maintenance Due Date Last Done Comments DTaP, Tdap and Td Vaccines ( 1 - Tdap) 1958 Zoster Vaccines (1 of 2) 1989 Annual Medicare Wellness Visit 2004 Pneumococcal Vaccine: 50+ Years (1 of 1 - PCV) 2004 RSV Immunization or 60+ Years (1 - 1-dose 75+ series) 2014 COVID-19 Vaccine (4 - 2023-2 5 season) 2024 08/10/2021, 12/15/2020, 11/17/2020 Meningococcal B Vaccine Aged Out No l onger eligible based on patient's age to complete this topic Meningococcal Vaccine Aged Out No belgica taurus eligible based on patient's age to complete this topic RSV Immunizations Under 20 Months Aged Out No longer eligible b ased on patient's age to complete this topic Insurance [employer]ARE [employer] Care Teams Teacher Lip Reading Relationship Specialty Start Date End Date Ross Bailey MD [address] [place] [address] PCP - General FAMILY PRACTICE 09/08/21
--- OUTSIDE RECORDS SUMMARY | 2025-01-18 14:48 | XMS_ITS | Encounter Summary ---
Author Organization [facility] Address [address] [place] [address] Care Team Providers Care Printed Circuit Board Assembler Name Role Phone Valeria Krishnamurthy RN Unavailable [phone] Ross Bailey MD Primary Care Provider [phone] Encounter Details Date Type Department Care Team (Late st Contact Info) Description 06/08/[address] 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 Gender Identity Not on file Sexual Orientation [...] Info) Description 03/19/2025 9:30 AM CDT Appointment [facility] Vascular Services [address] [place] [address], [address] [place], [place] [id number] 03/19/2025 10:10 AM CDT Office Visit [facility] - Surgery [address] [place] [address], [address] [place] [address] Bari Bermudez MD [address] [place] [address] documented as of this encounter Procedures Procedure Name Priority Date/Time Associated Diagnosis Comments DERMATOPATHOLOGY Routine 06/07/2023 3:33 AM CDT documented in this encounter Results * DERMATOPATHOLOGY (06/07/2023 3:33 AM CDT) Case Report Dermatopathology Report Case: [id number] Authorizing Provider: Richi Cardoza MD Collected: 06/07/2023 03:33 AM Ordering Location: [facility] DermPath Lab Received: 06/08/2023 04:59 PM Pathologist: Ling Pinon MD Specimen: Skin, left lat zygoma 3 11:15 AM CDT DERMATOPATHOLOGY LABORATORY Final Diagnosis Specimen A. SKIN, left lat zygoma: DERMAL SCAR RESIDUAL SQUAMOUS CELL CARCINOMA NOT IDENTIFIED (L90.5) HYPERPLASTIC (HYPERTROPHIC) ACTINIC KERATOSIS (L57.0) PRESENT AT MARGIN 3 11:15 AM CDT DERMATOPATHOLOGY LABORATORY Clinical History SCCa in situ Path#[id number] Check margins 3 11:15 AM T DERMATOPATHOLOGY LABORATORY Gross Description Specimen A: Received is one formalin filled container labeled with the patient's name and designated left lat zygoma. The specimen consists of a non-oriented ellipse of skin measuring 81s87z4 mm. The epidermal surface is unremarkable. The [...] characteristic determined by the Dermatopathology Laboratory at [facility], directed by Dr. Diogo Holland. These tests need not be, and therefore are not, approved by the [place] Food and Drug Administration. The tests are used for clinical purposes. Billing Codes Specimen Charges Stain Charges 41922 1 27185 1 3 11:15 AM CDT DERMATOPATHOLOGY LABORATORY Embedded Images 3 11:15 AM T DERMATOPATHOLOGY LABORATORY Pathology/Cytolo gy TISSUE SPECIMEN FROM SKIN / Unknown 06/07/2023 3:33 AM CDT 06/08/2023 4:59 PM CDT Richi Cardoza MD LAB - PATHOLOGY/CYTOLOGY ORDER VARSHA Final Result DERMATOPATHOLOGY LABORATORY [facility] - Department of Dermatology [facility] Specialized Medicine [address] [place] [address], [address] [phone] documented in this encounter Visit Diagnoses Not on filedocumented in this encounter Care Teams Printed Circuit Board Assembler Relationship Specialty Start Date End Date Ross Bailey MD [address] [place] [address] PCP - General Family Medicine 06/08/21 Valeria Krishnamurthy, RN Platform Inspector 11/03/13 documented as of this encounter
--- OUTSIDE RECORDS SUMMARY | 2025-01-18 14:48 | XMS_ITS | CONTINUITY OF CARE DOCUMENT ---
Author Name nathaly andersen Address Unknown Organization [facility] Address [address] [place] [address] Phone [phone] Care Team Providers Care Public Health Professor Name Role Phone Itz ALBARADO, Annette Unavailable EDGAR SOSA MD Unavailable [phone] EDGAR SOSA MD Unavailable PROBLEMS Condition Status Date Provider Notes Diabetes [...] In-person encounter Office Visit Annette Mobley MD [facility] Office Leg pain / neuropathy - In-person encounter Office Visit Annette Mobley MD [facility] Aortic stenosis--severe s/p transcarotid TAVR 12/22--echo ef nl, 04/2024 - In-person encounter Office Visit Annette Mobley MD [facility] - In-person encounter Office Visit Annette Mobley MD [place] [facility] - In-person encounter Office Visit Annette Mobley MD [facility] Aortic stenosis--severe s/p transcarotid TAVR 12/22--echo ef nl, 04/2024 - In-person encounter Office Visit Adrian Raphael MD [facility] Office - In-person encounter Office Visit Adrian Raphael MD [facility] Office - In-person encounter Office Visit Annette Mobley MD [facility] Aortic stenosis--severe s/p transcarotid TAVR 12/22--echo ef nl, AD--PCI of 90% of LAD, 8x27 metal stent to left subclavian, 11/2022 - In-person encounter Office Visit Annette Mobley MD [facility] Aortic stenosis--severe s/p transcarotid TAVR 12/22--echo ef nl, 04/2024 - In-person encounter Office Visit Adrian Raphael MD [facility] Office - In-person encounter Office Visit Annette Mobley MD [place] Office Diabetes mellitus, type 2Essential hypertensionHyperlipidemiaHx [...] blood pressure, diastolic 65 mm[Hg] [facility], systolic 131 mm[Hg] Vip in [facility] oxygen saturation, oximetry 97 % [facility] respiratory rate E&M 20 /min Hubert M caanan pulse rate 66 /min [facility] weight E&M 159 [lb_av] [facility]&M 67 [in_i] [facility] Body Mass Index (Ratio) 24.74 kg/m2 Sulma [...] magana [place] blood pressure, systolic 142 mm[Hg] [facility] phyllis [place] blood pressure, cuff size regular Lyndsey [place] oxygen saturation, oximetry 98 % Vivienne [place] respiratory rate E&M 16 /min Ruma [place] pulse rate 100 /min Vivienne reyes weight E&M 157 [lb_av] Vivienne reyes height E&M 67 [in_i] Vivienne reyes Body Mass Index (Ratio) 24.12 kg/m2 Fermín Raphael MD blood pressure, diastolic 71 mm[Hg] Lyndsey magana [place] blood pressure, systolic 155 mm[Hg] Michael ferguson [place] oxygen saturation, oximetry 98 % Vivienne [place] pulse rate 80 /min Vivienne [facility] respiratory rate E&M 16 /min Ruma sharp [place] blood pressure, cuff size large Lyndsey magana [place] weight E&M 154 [lb_av] Vivienne Christinaalyssia amy height E&M 67 [in_i] Vivienne Christinaalyssia amy Body Mass Index (Ratio) 25.21 kg/m2 Dino Nieves blood pressure, diastolic 60 mm[Hg] St debra [place] blood pressure, systolic 150 mm[Hg] Marky carlos alberto [place] oxygen saturation, oximetry 98 % Madhavi [place] pulse rate 95 /min Madhavi Amayamt n weight E&M 161 [lb_av] Madhavi Lohmt n respiratory rate E&M 16 /min Huan asher [place] blood pressure, cuff size small St debra [place] height E&M 67 [in_i] Madhavi Amayamt n Body Mass Index (Ratio) 24.43 kg/m2 [...] NT-pro BNP [address], [place] [address] activated partial thromboplastin time (aPTT) 33 s [employer] 27-37 Normal C, [place] [address] international normalized ratio (INR) 2.0 [employer] 0.9-1.2 [place], [place] [address] prothrombin time (patient) 21.9 s [employer] 9.2-13.5 High C, [address] [address] HISTORY OF MEDICATION USE Medication Status Instructions [...] Payer name Policy type / Coverage type [place] green party ID [place] Medicare [id number] [place] MEDICARE SECONDARY Commercial insurance [facility] [id number] ADVANCE DIRECTIVES Name Date DISCUSSED - NO DECISION MADE TREATMENT PLAN Date Name Performer [id number],S, Al wKonmedza i [id number],S, Al Kwonmedza i [id number],S, Al Kwonmedza i [id number],S, Al Kwonmedza i [id number],S, Al Kwonmedza i [id number],B, Annette Mobley MD [id number],B, Annette Mobley MD [id number],B, Annette Mobley MD [id number],BAnnette MD [id number],B, Annette Mobley MD [id number],S, Adrian barker MD [id number],S, Adrian barker MD [id number],C,R ight Ao-Fem-Pop, Left Ax-Fem bypass. Adrian Raphael MD [id number],C,s/p EVOLUTE 2 9 mm TAVR Adrian Raphael MD [id number],B,Continue Plav ix for 1 year Adrian Raphael MD [id number],C,C /o being tired all the time. O rders: 9 9213 MOD 30-39min (CPT-75716) Noemy David NP [id number],C, H is updated medication list for this problem includes: Fenofibrate 160 Mg Tablet (Fenofibrate) Ezetimibe 10 Mg Tablet (Ezetimibe) Pravastatin 40 Mg Tablet (Pravastatin) Noemy David NP [id number],C,s ees PCP H is updated medication list for this problem includes: Metformin 500 Mg Tablet (Metformin) Januvia 100 Mg Tablet (Sitagliptin phosphate) Metformin 500 Mg Tablet (Metformin) Noemy David NP [id number],C,U nunderwent transcarotid the TAVR successfully on 12/01/22 with Evolut FX 29 mm valve. Noemy David NP [id number],C, D enies chest pain His updated medication list for this problem includes: Clopidogrel 75 Mg Tablet (Clopidogrel) Jantoven 4 Mg Tablet (Warfarin) Amlodipine 5 Mg Tablet (Amlodipine) Orders: 9213 MOD 30-39min (CPT-92568) Noemy Ganluri TANA [id number],C, B P today: 155/71 P rior BP: 150/60 (11/29/2022) His updated medication list for this problem includes: Amlodipine 5 Mg Tablet (Amlodipine) Noemy Ganludana FAJARDO [id number],SAl i [id number],SAl i [id number],S, Al Ahmedza i [id number],S, Al Ahmedza i [id number],S, Al Ahmedza i [id number],S, Al Ahmedza i [id number],S, Al Ahmedza i [id number],S, Al Ahmedza i [id number],S, Al Ahmedza i [id number],S, Al Ahmedza i [id number],S, Al Ahmedza i [id number],S, Al Ahmedza i [id number],S, Al Ahmedza i [id number],B,unsure if rel ated to Adrian Raphael MD [id number],S, Adrian barker MD [id number],W, repeat echo. refer to valve clinic. Adrian Raphael MD [id number],S, Al Ahmedza i [id number],S, Al Ahmedza i [id number],S, Al Ahmedza i [id number],S, Al Ahmedza i [id number],S, Al Ahmedza i [id number],S, Al Ahmedza i Cardiology: H is updated medication list for this problem includes: Clopidogrel 75 Mg Tablet (Clopidogrel) ..... Take 1 tablet by mouth every day Annette Mobley MD Cardiology: O rders: C omplete Echo (89349) Annette Mobley MD Cardiology: B P today: 116/71 P rior BP: 131/65 (04/30/2024) His updated medication list for this problem includes: Amlodipine 5 Mg Tablet (Amlodipine) Orders: C omplete Echo (58716) Annette Mobley MD Cardiology:This visi t has been a part of the consistent, comprehensive, and ongoing management of the chronic medical condition(s) listed above for the patient. Orders: C omplete Echo (18337) His updated medication list for this problem [...] Mg Tablet (Sitagliptin phosphate) Al sung Cardiology lA Erazo Cardiology Al Erazo Cardiology Al Erazo [...] time. O rders: 9 9214 MOD 30-39min (CPT-02661) Noemy David COMPRESSOR STATION ENGINEER CHIEF Cardiology: H is updated medication list for this problem includes: Fenofibrate 160 Mg Tablet (Fenofibrate) Ezetimibe 10 Mg Tablet (Ezetimibe) Pravastatin 40 Mg Tablet (Pravastatin) Noemy Ganludana COMPRESSOR STATION ENGINEER CHIEF Cardiology:sees PCP H is updated medication list for this problem includes: Metformin 500 Mg Tablet (Metformin) Januvia 100 Mg Tablet (Sitagliptin phosphate) Metformin 500 Mg Tablet (Metformin) Noemy Ganluri COMPRESSOR STATION ENGINEER CHIEF Cardiology:Ununderwe nt transcarotid the TAVR successfully on 12/01/22 with Evolut FX 29 mm valve. Noemy Ganluri COMPRESSOR STATION ENGINEER CHIEF Cardiology: D enies chest pain His updated medication list for this problem includes: Clopidogrel 75 Mg Tablet (Clopidogrel) Jantoven 4 Mg Tablet (Warfarin) Amlodipine 5 Mg Tablet (Amlodipine) Orders: 9 9214 MOD 30-39min (CPT-15957) Noemy Ganluri COMPRESSOR STATION ENGINEER CHIEF Cardiology: B P today: 155/71 P rior BP: 150/60 (11/29/2022) His updated medication list for this problem includes: Amlodipine 5 Mg Tablet (Amlodipine) Noemy Ganluri COMPRESSOR STATION ENGINEER CHIEF Cardiology Al Ahmedzai Cardiology Al Ahmedzai Cardiology [...]
--- OUTSIDE RECORDS SUMMARY | 2025-01-18 14:48 | XMS_ITS | Encounter Summary ---
Author Organization [facility] Address [address] [place] [address] Care Team Providers Care Retina Subspecialist Name Role Phone Valeria Krishnamurthy RN Unavailable [phone] Ross Bailey MD Primary Care Provider [phone] Encounter Details Date Type Department Care Team (Late st Contact Info) Description 03/31/2021 Lab Requisition [facility] Care DermPath Lab [address] [facility] [place] [id number] Richi Cardoza MD [address] [place] [address] Social History Tobacco Use Types Packs/Day Years Used Date Smoking Tobacco: Former Cigarettes 2 40 0 10/02/1954 - 10/02/1994 Smokeless Tobacco: Never Alcohol Use Standard Drinks/Week Comments No 0 (1 standard drink = 0.6 oz pur e alcohol) Sex and Gender Information Value Date Recorded Sex Assigned at Not on file Legal Sex Male 8:53 AM SOLUTION ADVISOR Gender Identity Not on file Sexual Orientation [...] Info) Description 03/19/2025 9:30 AM CDT Appointment [facility] Vascular Services [address] [place] [address], [address] [place] [address] 03/19/2025 10:10 AM CDT Office Visit [facility] - Surgery [address] [place] [address], [address] [place] [address] Bari Bermudez MD [address] [place] [address] [address] [place] [address] documented as of this encounter Procedures Procedure Name Priority Date/Time Associated Diagnosis Comments DERMATOPATHOLOGY Routine 03/30/2021 12:0 0 AM CDT documented in this encounter Results * DERMATOPATHOLOGY (03/30/2021 12:00 AM CDT) Case Report Dermatopathology Report Case: [id number] Authorizing Provider: Richi Cardoza MD Collected: 03/30/2021 12:00 AM Ordering Location: [facility] DermPath Lab Received: 03/31/2021 05:53 AM Pathologist: Ruben Holland MD Specimen: Skin, left lower cheek 2:41 PM CDT DERMATOPATHOLOGY LABORATORY Final Diagnosis Specimen A. 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 Path # [id number]. 1 2:41 PM CDT DERMATOPATHOLOGY LABORATORY Gross Description Specimen A: Received is one formalin filled container labeled with the patient's name and designated left lower cheek. The specimen consists of a shave biopsy measuring [id number]. Jar 0. 1 2:41 PM CDT DERMATOPATHOLOGY LABORATORY Microscopic Description [...] characteristic determined by the Dermatopathology Laboratory at [facility], directed by Dr. Diogo Holland. These tests need not be, and therefore are not, approved by the [place] Food and Drug Administration. The tests are used for clinical purposes. Billing Codes Specimen Charges Stain Charges 25044 1 1 2:41 PM CDT DERMATOPATHOLOGY LABORATORY Embedded Images 1 2:41 PM CDT DERMATOPATHOLOGY LABORATORY Pathology/Cytolog y TISSUE SPECIMEN FROM SKIN / Unknown 03/30/2021 03/31/2021 5:53 AM CDT us Richi Cardoza MD LAB - PATHOLOGY/CYTOLOGY ORDER VARSHA Final Result DERMATOPATHOLOGY LABORATORY [facility] - Department of Dermatology [facility] Medicine [address] [place] [address], [address] [phone] documented in this encounter Visit Diagnoses Not on filedocumented in this encounter Care Teams Retina Subspecialist Relationship Specialty Start Date End Date Ross Bailey MD [address] [place] [address] PCP - General Family Medicine 06/08/21 Valeria Krishnamurthy RN Optical Goods Drilling Machine Operator 11/03/13 documented as of this encounter
--- OUTSIDE RECORDS SUMMARY | 2025-01-18 14:48 | XMS_ITS | Clinical Summary ---
Author Organization [facility] Address [address] [place] [address] Care Team Providers Care Compensation And Benefits Advisor Name Role Phone Valeria Krishnamurthy RN Unavailable [phone] Ross Bailey MD Primary Care Provider [phone] [facility],non-owned Affiliates and Associated Physician Practices is amultiple site organization consisting of ambulatory clinics and hospital sitesin [place], [place], [place] and [place]. This disclosure is being madepursuant to the Care Everywhere program and may not contain all information available regarding this patient. Last updated 18.[facility] Allergies Active Allergy Reactions Criticality Noted Date Comments Lisinopril 01/22/2012 Medications * Be aware that medications may not be up to date on this document. Alwaysverify current medications with the patient. ezetimibe (ZETIA) 10 MG tablet Take 1 (one) tablet by mouth once daily Active sitagliptin (JANUVIA) 100 MG tablet Take 1 (one) tablet by mouth once daily Active metFORMIN (GLUCOPHAGE) 500 MG tablet Take 1 (one) tablet by mouth once daily Active pravastatin (PRAVACHOL) 40 MG tabletIndications: Atherosclerotic Disease Take 1 (one) tablet by mouth at bedtime Reasons: Disease involving Lipid Deposits in the Arteries Active fenofibrate (LOFIBRA) 54 MG tabletIndications: Type IV Hyperlipidemia Take 1 (one) tablet by mouth 2 times daily, before breakfast and supper Take with largest meal of the day. Reasons: Type IV Hyperlipidemia Active amLODIPine (NORVASC) 5 MG tablet 09/01/20 16 Active Vitamin D3 (CHOLECALCIFEROL) 2000 UNITS capsule Take 2 (two) capsules by mouth once daily Active traZODone (Desyrel) 50 MG tablet TAKE 1 TABLET BY MOUTH EVERY DAY AT BEDTIME NEEDED FOR INSOMNIA 06/07/20 22 Active Aspirin 81 MG CAPS A ctive TERBINAFINE HCL PO A ctive memantine (Namenda) 5 MG tablet TAKE 1 TABLET BY MOUTH EVERY DAY FOR 7 DAYS THEN 1 TAB TWICE DAILY THEREAFTER 03/01/20 23 Active terbinafine (LamISIL) 250 MG tablet Take 1 (one) tablet by mouth once daily 01/28/20 23 Active fenofibrate (Lofibra) 160 MG tablet 04/03/20 23 Active rivastigmine (Exelon) 1.5 MG capsule Take 1 (one) capsule by mouth 02/29/20 24 Active Eliquis 5 MG tablet TAKE 1 TABLET BY MOUTH TWICE A DAY 60 tablet 5 09/06/20 24 Active hydrOXYzine HCl (Atarax) 10 MG tablet TAKE 1 TABLET BY MOUTH EVERY DAY AT BEDTIME NEEDED FOR INSOMNIA 07/23/20 24 Active HYDROcodone-acetam inophen ([place]) 5-325 MG tabletIndications: Peripheral vascular disease Take 1 (one) tablet by mouth every 8 hours as needed for Pain 90 tablet 09/18/20 24 Active Additional Information Patient not taking.Reported on 11/28/2024 pentoxifylline CR (TRENtal) 400 MG tabletIndications: Peripheral vascular disease TAKE 1 TABLET BY MOUTH THREE TIMES A DAY 270 tablet 1 09/30/20 24 Active gabapentin (Neurontin) 100 MG capsule gabapentin 100 mg capsule 11/18/19 25 Active Active Problems Problem Noted Date Diagnosed Date Leg skin lesion, right 03/12/2024 Cold foot with peripheral vascular disease 09/03 Pain of right lower extremity 09/03/2022 PVD (peripheral vascular disease) 08/11/2016 Cerebral infarction 07/30/2012 Overview (08/09/2015): Encounters Date Type Department Care Team Description 11/28/2024 9:00 AM FRONT DESK SUPERVISOR Office Visit [facility] - Surgery [address] [place] [address], [address] [address] Lavon Jerez MD PVD (peripheral vascular disease) (Primary Dx) 11/28/2024 8:00 AM FRONT DESK SUPERVISOR - 11/28/2024 11:59 PM FRONT DESK SUPERVISOR Hospital Encounter [facility] [address], [address] [place] [address] Lavon Jerez MD Vascular Surgery Discharge Disposition: Home or Self Care 11/28/2024 Travel from Last 3 Months Family History Medical [...] on file Legal Sex Male 8:53 AM FRONT DESK SUPERVISOR Gender Identity Not on file Sexual Orientation Not on file Last Filed Vital Signs Vital Sign Reading Time Taken Comments Blood Pressure 114/70 09/04/2022 10:49 AM FRONT DESK SUPERVISOR Pulse 69 09/04/2022 10:49 AM FRONT DESK SUPERVISOR Temperature 36.7 C (98 F) 09/04/2022 10:49 AM FRONT DESK SUPERVISOR Respiratory Rate 16 09/04/2022 10:49 AM FRONT DESK SUPERVISOR Oxygen Saturation 96% 09/04/2022 10:49 AM FRONT DESK SUPERVISOR Inhaled Oxygen Concentration - - Weight 70.3 kg (155 lb) 11/28/2024 9:32 AM FRONT DESK SUPERVISOR Height 170.2 cm (5' 7 ) 11/28/2024 9:32 AM FRONT DESK SUPERVISOR Body Mass Index 24.28 11/28/2024 9:32 AM FRONT DESK SUPERVISOR Plan of Treatment Upcoming Encounters Date Type Department Care Team (Late st Contact Info) Description 03/19/2025 9:30 AM CDT Appointment [facility] [address] [place] [address], [address] [place] [address] 03/19/2025 10:10 AM CDT Office Visit [facility] - Surgery [address] [place] [address], [address] [place] [address] [place] [address] [facility] [address] [place] [id number] Health Maintenance Due Date Last Done Comments MEDICARE AWV 12 MONTHS 1940 DTAP/TDAP/TD VACCINES (1 - Tdap) 1958 PNEUMOCOCCAL VACCINE 50+ (1 of 1 - PCV) 1989 ZOSTER VACCINE (1 of 2) 1989 Respiratory Syncytial Virus (RSV) Vaccine Pt: or over 60 yrs (1 - 1-dose 75+ series) 2014 COVID-19 VACCINE (4 - 2023-2 5 season) 2024 08/10/2021, 12/15/2020, 11/17/2020 DEPRESSION SCREENING 10/02/2024 INFLUENZA VACCINE (Season Ended) 2025 07/02/2022 HEPATITIS B VACCINE Aged Out No longe [...] this topic Medical Devices Implanted Type Area Roller Mechanic Device Identifier Shelf Expiration Date Model / Serial / Lot Elliot Carboflo 8 X 40 - [id number] Implanted:Qty: 1 on 01/05/2015 by Bari Bermudez MD at [facility] Right: Vidhi Uriasa [id number] / [id number] / Elliot Propaten 6 X 50 Implanted:Qty: 1 on 01/05/2015 by Bari Bermudez MD at [facility] Right: [employer] [id number] / / [id number] Procedures Procedure Name Priority Date/Time Associated Diagnosis Comments VAS LEFT VENOUS DUPLEX LE Routine 11/28/2024 10:55 AM FRONT DESK SUPERVISOR Pain of left lower extremity from Last 3 Months Results * VAS Left Venous Duplex Le (11/28/2024 10:55 AM FRONT DESK SUPERVISOR) Anatomical Region Laterality Modality Lower Extremity, Upper Extremity Ultrasound 11/28/2024 10:4 0 AM FRONT DESK SUPERVISOR Narrative Procedure Note Lavon Jerez MD - 11/28/2024 [facility] [place] [address], [address] [place] [address] Upper Extremity Arterial Ultrasound Report Pat.Name: RONEYPRAFUL GWEN L Pat.ID: [id number] .Date: 11/28/2024 Exam Time: 10:40:00 AM Study Type:UE Arterial Age: 2 1940,84Y Sex: MALE Sonogrphr: Mehdi Yoon RVT Pat. Stat.:Outpatient CPT - 4: 29105 Reason for Study: PVD Procedures: Upper Extremity Arterial Duplex - Left Race: [facility] Visit ID: [id number] ++++++++++++++++++++++++++++++++++++ SUMMARY: ++++++++++++++++++++++++++++++++++++ Patent left axillary to femoral bypass graft ++++++++++++++++++++++++++++++++++++ FINDINGS: ++++++++++++++++++++++++++++++++++++ Procedure: B-mode imaging, color flow Doppler and spectral analysis were used to examine the arteries of the left upper extremity. Study Quality: This study is of adequate technical quality. Graft: The left axillary to profunda graft was patent. Signed 11/28/2024 11:29 AM Lavon Jerez MD Lavon Jerez MD VASCULAR LAB ORDERABLES Edit ed from Last 3 Months Insurance [facility] MEDIC[facility] MEDICARE [employer] [facility] Advance Directives Documents on File Type Date Recorded Patient Oncology Consultant Expl anation Adv Directive/Living Will/POA 01/01/2012 11:43 [...] 3:14 PM 09/13/2014 1:53 PM Care Teams Compensation And Benefits Advisor Relationship Specialty Start Date End Date Ross Bailey MD [address] [place] [id number] PCP - General Family Medicine 06/08/21 Valeria Krishnamurthy, RN Community Relations Rep 11/03/13
--- OUTSIDE RECORDS SUMMARY | 2025-01-18 14:48 | XMS_ITS | Continuity of Care Document ---
Author Organization [facility] Address [address] [place] [address] [address] [place] [address] Phone Care Team Providers Care Molding Machine Operator Helper Name Role Phone Dave Gipson Unavailable Unavailable Procedures Procedure Date Eye Exam & Treatment Dilated Retinal Exam W Interpretation Oc Refraction Office/outpatient Visit, [facility] Dilated Retinal Exam W Interpretation Oc No Script Advance Directives Directive Yes / No Effective Date File Name No Information Encounters Encounter Description Practice Location Reason(s) For Visit Diagnoses Date Provider Providers Copied on Encounter [facility], [address] [place] [address] [address], [place], [place], [id number], tel:[phone] [facility] No Information Oct-2 9-201 0 Brandan Acosta. [facility] , [address], [place], [place], [facility], [facility] [place], [place]. tel:[phone] Office/outpat ient Visit, [facility], [address] [place] [address] [address], [place], [place], [id number], tel:[phone] [facility] No Information Oct-0 6-200 9 Krishnasamy Hans. [address] [facility] [address], [place], [place], [facility], [facility] [place], [place]. tel:[phone] Family History Family Member Type Diagnosis Age At Onset No Information Payers Payer name Insurance type Covered democrat ID Authoriza tion(s) [place] [id number] [facility] [id number] Social History Type Description Quantity Date Captured [...]
--- OUTSIDE RECORDS SUMMARY | 2025-01-18 14:48 | XMS_ITS | Encounter Summary ---
Author Organization [facility] Address [address] [place] [address] Care Team Providers Care Automobile And Property Underwriter Name Role Phone Valeria Krishnamurthy RN Unavailable [phone] Ross Bailey MD Primary Care Provider [phone] Encounter Details Date Type Department Care Team (Late st Contact Info) Description 11/21/2022 Lab Requisition [facility] D[facility] [address] [place] [id number] Richi Cardoza MD [address] [place] [address] Social History Tobacco Use Types Packs/Day Years Used Date Smoking Tobacco: Former Cigarettes 2 40 0 10/02/1954 - 10/02/1994 Smokeless Tobacco: Never Alcohol Use Standard Drinks/Week Comments No 0 (1 standard drink = 0.6 oz pur e alcohol) Sex and Gender Information Value Date Recorded Sex Assigned at Not on file Legal Sex Male 8:53 AM FULL STACK PYTHON DEVELOPER Gender Identity Not on file Sexual Orientation [...] 03/19/2025 9:30 AM CDT Appointment [facility] [address] [place] [address], [address] [place] [address] 03/19/2025 10:10 AM CDT Office Visit [facility] - [facility] [address] [place] [address], [address] [place] [address] Bari Bermudez MD [address] [place] [address] [address] [place] [address] documented as of this encounter Procedures Procedure Name Priority Date/Time Associated Diagnosis Comments DERMATOPATHOLOGY Routine 11/21/2022 12:0 0 AM FULL STACK PYTHON DEVELOPER documented in this encounter Results * DERMATOPATHOLOGY (11/21/2022 12:00 AM FULL STACK PYTHON DEVELOPER) Case Report Dermatopathology Report Case: [id number] Authorizing Provider: Richi Cardoza MD Collected: 11/21/2022 12:00 AM Ordering Location: [facility] DermPath Lab Received: 11/21/2022 04:26 PM Pathologist: Cristin Mcgill MD Specimen: Skin, left earlobe 3 12:54 PM FULL STACK PYTHON DEVELOPER DERMATOPATHOLOGY LABORATORY Final Diagnosis Specimen A. 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 The specimen consists of a shave biopsy measuring 7x6x2 mm. Jar 0. 3 12:54 PM [facility] DERMATOPATHOLOGY LABORATORY Microscopic Description Specimen A. SKIN, left earlobe: The epidermis shows parakeratosis, full thickness disorderly maturation of keratinocytes, mitoses at different levels, and dyskeratotic cells. The lesion extends to the base of the biopsy. COMMENT: An invasive squamous cell carcinoma cannot be ruled out. 3 12:54 PM [facility] DERMATOPATHOLOGY LABORATORY Disclaimer An external and internal positive and negative controls are appropriate for the histochemical, immunohistochemical and immunofluorescence stain(s) in this case (if any), except where stated explicitly. The performance characteristics of the stain(s) cited in this report were developed and its performance characteristic determined by the Dermatopathology Laboratory at [facility], directed by Dr. Diogo Holland. These tests need not be, and therefore are not, approved by the [place] Food and Drug Administration. The tests are used for clinical purposes. Billing Codes Specimen Charges Stain Charges 67889 1 3 12:54 PM [facility] DERMATOPATHOLOGY LABORATORY Embedded Images 3 12:54 PM [facility] DERMATOPATHOLOGY LABORATORY Pathology/Cytolog y TISSUE SPECIMEN FROM SKIN / Unknown 11/21/2022 11/21/2022 4:26 PM FULL STACK PYTHON DEVELOPER us Richi Cardoza MD LAB - PATHOLOGY/CYTOLOGY ORDER VARSHA Final Result DERMATOPATHOLOGY LABORATORY [facility] - Department of Dermatology [facility] Medicine [address] [place] [address], [address] [phone] documented in this encounter Visit Diagnoses Not on filedocumented in this encounter Care Teams Automobile And Property Underwriter Relationship Specialty Start Date End Date Ross Bailey MD [address] [place] [address] PCP - General Family Medicine 06/08/21 Valeria Krishnamurthy, RN Overlock Operator 11/03/13 documented as of this encounter
== END 2025-01-18 14:44 | disposition home or self-care (01) ==
PROVIDERS: PCP Family Medicine; Visit Provider Physician Assistant
DX: M47.816 Spondylosis without myelopathy or radiculopathy, lumbar region (principal); M51.9 Unspecified thoracic, thoracolumbar and lumbosacral intervertebral disc disorder
CPT/HCPCS: 72148

== ENCOUNTER 2025-03-10 12:22 | Outpatient (CLI) | payer MEDICARE, OTHER, SELFPAY ==
--- NOTE | ~2025-03-10 | XR_ITS ---
Left wrist Technique: PA, oblique, lateral, and ulnar deviation views were obtained. Clinical History: Pain Findings: No acute fracture or dislocation is seen. Osseous alignment is anatomic. Joint spaces are p reserved. Soft tissues are unremarkable. Impression: Unremarkable left wrist radiographs. Reviewed, dictated and finalized at location . Impression: Unremarkable left wrist radiographs.
== END 2025-03-10 12:23 | disposition home or self-care (01) ==
LOC: MICIMG 12:24
PROVIDERS: PCP Family Medicine; Visit Provider Physician Assistant
DX: M25.532 Pain in left wrist (principal)
CPT/HCPCS: 73110